=== PATIENT | female | born 1980 | race Caucasian/White ===

== ENCOUNTER 2017-02-25 13:35 | Emergency (ER) | payer OTHER ==
[2017-02-25] MEDS ORDERED: SODIUM CHLORIDE 0.9% 1,000 ML IV STA (15:01)
[2017-02-25] MEDS ORDERED: ENALAPRILAT 1.25 MG/ML 1 ML VIAL IVP STA (15:01)
--- NOTE | 2017-02-25 15:08 | ED ---
General Adult HPI - General Chief complaint: Headache Stated complaint: HBP Time Seen by Provider: 02/25/17 14:54 Source: patient, RN notes reviewed Mode of arrival: wheelchair Limitations: no limitations - History of Present Illness Initial comments: 36 yo female presents to the emergency room chief complaint of headache. Patient states she woke up this morning with a headaches took her blood pressure in the bottom number was 113. Patient states she has high blood pressure in but has since had no problems. Patient states that her headache was concerning with this so she thought that she should be seen. Patient denies any nausea or vomiting with this. Patient states she did notice the blurred vision. Patient denies any weakness. Patient was concerned due to the headache so she thought that she should be evaluated. Patient denies any recent fever, chills, shortness of breath, chest pain, back pain, abdominal pain , nausea vomiting, numbness or tingling, dysuria or hematuria, constipation or diarrhea, visual changes, or any other current symptoms. - Related Data Home Medications Medication Instructions Recorded Confirmed Levothyroxine Sodium [Synthroid] 88 mcg PO DAILY 02/25/17 02/25/17 Previous Rx's Medication Instructions Recorded amLODIPine BESYLATE [Norvasc] 2.5 mg PO DAILY #10 tab 02/25/17 Allergies Allergy/AdvReac Type Severity Reaction Status Date / Time codeine AdvReac Nausea & Verified 02/25/17 15:35 Vomiting Review of Systems ROS Statement: Those systems with pertinent positive or pertinent negative responses have been documented in the HPI. ROS Other: All systems not noted in ROS Statement are negative. Past Medical History Past Medical History: Asthma Additional Past Medical History / Comment(s): migraines. History of Any Multi-Drug Resistant Organisms: None Reported Past Surgical History: No Surgical Hx Reported Past Psychological History: No Psychological Hx Reported Smoking Status: Never smoker Past Alcohol Use History: None Reported Past Drug Use History: None Reported General Exam - General Exam Comments Initial Comments: General: The patient is awake and alert, in no distress, and does not appear acutely ill. Eye: Pupils are equal, round and reactive to light, extra-ocular movements are intact; there is normal conjunctiva bilaterally. No signs of icterus. Ears, nose, mouth and throat: There are moist mucous membranes and no oral lesions. Neck: The neck is supple, there is no tenderness. Cardiovascular: There is a regular rate and rhythm. No murmur, rub or gallop is appreciated. Respiratory: Lungs are clear to auscultation, respirations are non-labored, breath sounds are equal. No wheezes, stridor, rales, or rhonchi. Gastrointestinal: Soft, non-distended, non-tender abdomen without masses or organomegaly noted. There is no rebound or guarding present. No CVA tenderness. Bowel sounds are unremarkable. Back: There is no tenderness to palpation in the midline. There is no obvious deformity. No rashes noted. Musculoskeletal: Normal ROM, no tenderness, There is no pedal edema. There is no calf tenderness or swelling. Sensation intact. Pulses equal bilaterally 2+. Neurological: CN II-XII intact, There are no obvious motor or sensory deficits. Coordination appears grossly intact. Speech is normal. Skin: Skin is warm and dry and no rashes or lesions are noted. Psychiatric: Cooperative, appropriate mood & affect, normal judgment. Limitations: no limitations Course Vital Signs 02/25/17 02/25/17 02/25/17 13:51 14:57 15:59 Temperature 98.2 F Pulse Rate 90 78 Respiratory 20 18 18 Rate Blood Pressure 160/85 172/96 154/91 O2 Sat by Pulse 96 Oximetry 02/25/17 02/25/17 16:36 17:19 Temperature 97.9 F Pulse Rate 89 Respiratory 14 Rate Blood Pressure 124/82 119/69 O2 Sat by Pulse 100 Oximetry Medical Decision Making - Medical Decision Making 36-year-old female presents emergency 5 chief complaint of headache and hypertension. This time patient's headache and high blood pressure has improved. At this time CT is reviewed and negative. At this time we will start patient on Norvasc for hypertension.. Her doctor return for hours all questions. She stated that she understood and she is given plan. All her symptoms. She'll be discharged. - Lab Data Result diagrams: 02/25/17 15:19 02/25/17 15:19 Lab Results 02/25/17 02/25/17 02/25/17 Range/Units 15:19 15:19 15:19 WBC 7.3 (3.8-10.6) k/uL RBC 4.35 (3.80-5.40) m/uL Hgb 13.1 (11.4-16.0) gm/dL Hct 39.3 (34.0-46.0) % MCV 90.3 (80.0-100.0) fL MCH 30.1 (25.0-35.0) pg MCHC 33.4 (31.0-37.0) g/dL RDW 12.6 (11.5-15.5) % Plt Count 194 (150-450) k/uL Neutrophils % 60 % Lymphocytes % 30 % Monocytes % 6 % Eosinophils % 3 % Basophils % 1 % Neutrophils # 4.3 (1.3-7.7) k/uL Lymphocytes # 2.1 (1.0-4.8) k/uL Monocytes # 0.4 (0-1.0) k/uL Eosinophils # 0.2 (0-0.7) k/uL Basophils # 0.0 (0-0.2) k/uL Sodium 145 (137-145) mmol/L Potassium 3.7 (3.5-5.1) mmol/L Chloride 109 H (98-107) mmol/L Carbon Dioxide 23 (22-30) mmol/L Anion Gap 13 mmol/L BUN 9 (7-17) mg/dL Creatinine 0.70 (0.52-1.04) mg/dL Est GFR (MDRD) Af Amer >60 (>60 ml/min/1.73 sqM) Est GFR (MDRD) Non-Af >60 (>60 ml/min/1.73 sqM) Glucose 99 (74-99) mg/dL Calcium 9.6 (8.4-10.2) mg/dL Total Bilirubin 0.5 (0.2-1.3) mg/dL AST 23 (14-36) U/L ALT 32 (9-52) U/L Alkaline Phosphatase 67 (38-126) U/L Total Protein 7.7 (6.3-8.2) g/dL Albumin 4.7 (3.5-5.0) g/dL HCG, Qual Not Detected - Radiology Data Radiology results: report reviewed, image reviewed Disposition Clinical Impression: Headache, Hypertension Disposition: HOME SELF-CARE Condition: Stable Instructions: Acute Headache (ED) Additional Instructions: Please use medication as discussed. Please follow up with family doctor if symptoms have not improved over the next two days. Please return to the emergency room if your symptoms increase or worsen or for any other concerns. Prescriptions: amLODIPine BESYLATE [Norvasc] 2.5 mg PO DAILY #10 tab Referrals: Russ Bell MD [Primary Care Provider] - 1-2 days Time of Disposition: 18:18
[2017-02-25 15:34] LABS: Basophils % (A) 1 %; CH 30.1; CHCM 33.5; Eosinophils # (A) 0.2 k/uL (0-0.7); Eosinophils % (A) 3 %; HCT 39.3 % (34.0-46.0); HDW 2.34; HGB 13.1 gm/dL (11.4-16.0); Luc # (Auto) 0.11; Luc % (Auto) 2; Lymphocytes # (A) 2.1 k/uL (1.0-4.8); Lymphocytes % (A) 30 %; MCH 30.1 pg (25.0-35.0); MCHC 33.4 g/dL (31.0-37.0); MCV 90.3 fL (80.0-100.0); Mean Platelet Volume 6.8; Monocytes # (A) 0.4 k/uL (0-1.0); Monocytes % (A) 6 %; Neutrophils # (A) 4.3 k/uL (1.3-7.7); Neutrophils % (A) 60 %; RBC 4.35 m/uL (3.80-5.40); RDW 12.6 % (11.5-15.5); WBC 7.3 k/uL (3.8-10.6); WBC (Perox) 7.28
[2017-02-25] MEDS ORDERED: METOCLOPRAMIDE 5 MG/ML 2 ML VIAL IVP STA (15:40)
[2017-02-25] MEDS ORDERED: diphenhydrAMINE 50 MG/ML 1 ML VIAL IVP STA (15:40)
[2017-02-25 15:47] LABS: ALT 32 U/L (9-52); AST 23 U/L (14-36); Alkaline Phosphatase 67 U/L (38-126); Anion Gap 13 mmol/L; Blood Urea Nitrogen 9 mg/dL (7-17); Calcium 9.6 mg/dL (8.4-10.2); Carbon Dioxide 23 mmol/L (22-30); Chloride 109 mmol/L (98-107); Glucose 99 mg/dL (74-99); Non-African American GFR(MDRD) >60 (>60 ml/min/1.73 sqM); Potassium 3.7 mmol/L (3.5-5.1); Sodium 145 mmol/L (137-145); Total Bilirubin 0.5 mg/dL (0.2-1.3); Total Protein 7.7 g/dL (6.3-8.2)
--- NOTE | 2017-02-25 16:55 | CT ---
EXAMINATION TYPE: CT brain wo con DATE OF EXAM: 02/25/2017 COMPARISON: 04/06/2012 HISTORY: Migrane today. CT DLP: 1049 mGycm. Automated Exposure Control for Dose Reduction was Utilized. TECHNIQUE: CT scan of the head is performed without contrast. FINDINGS: There is no acute intracranial hemorrhage, mass effect, or midline shift identified. The ventricles and sulci are within normal limits in size. Changes of chronic mild sinusitis. IMPRESSION: No acute intracranial hemorrhage, mass effect, or midline shift is seen. If symptoms per sist recommend MRI.
[2017-02-25] MEDS ORDERED: RX INFO: IV CONTRAST WAS GIVEN 1 EACH MISC MISCELLANE PRN (17:07)
--- NOTE | 2017-02-25 18:10 | CT ---
EXAMINATION TYPE: CT angio head neck DATE OF EXAM: 02/25/2017 HISTORY: Hypertension and migrane. COMPARISON: NONE CT DLP: 250.1 mGycm. Automated Exposure Control for Dose Reduction was Utilized. TECHNIQUE: CTA scan of the neck is performed with IV Contrast, patient injected with 65 mL of Omnipa que 350, axial images are obtained, coronal and sagittal reformatted images are reviewed. Three-D rec onstructed images are created on an independent workstation and reviewed. FINDINGS: Visualized lung apices and superior mediastinum: Negative. Neck Soft tissues: No acute process. No focal findings. Carotid arterial Vascular Structures: Negative. Vertebral arterial vascular structures: Negative. Intracranial vascular structures: Negative. Intracranial examination: Both intra-axial and extra-axial compartments are negative. Other: No incidental findings. IMPRESSION: No significant abnormality is seen.
[2017-02-25] MEDS ORDERED: KETOROLAC 30 MG/ML 1 ML VIAL IVP STA (18:17)
[2017-02-25 18:45] VITALS: BP 123/74; PULSE 74; RESP 16; TEMP 98
== END 2017-02-25 18:40 | disposition home or self-care (01) ==
LOC: EC 13:35
DX: R51 Headache (principal); I10 Essential (primary) hypertension; H53.8 Other visual disturbances; Z79.899 Other long term (current) drug therapy; Z88.5 Allergy status to narcotic agent
CPT/HCPCS: 99284 ×2; 96374 ×2; 96375 ×3; 96361 ×4; 36415; 80053; 85025; 84703; 70496; 70450; 70498; J1200; J2765; Q9967; J1885

== ENCOUNTER → 2017-05-02 | Outpatient (CLI) | payer OTHER | END | disposition home or self-care (01) | LOC: LABWHC1 09:39 | PROVIDERS: ATTEND Nurse Practitioner Adult Health | DX: E03.9 Hypothyroidism, unspecified (principal) | CPT/HCPCS: 36415; 84439; 84443 ==

== ENCOUNTER 2017-07-31 12:02 | Emergency (ER) | payer OTHER ==
[2017-07-31 12:13] VITALS: RESP 18
[2017-07-31] MEDS ORDERED: ONDANSETRON 4 MG/2 ML VIAL IVP STA (12:37)
[2017-07-31] MEDS ORDERED: DIAZEPAM 5 MG/ML 2 ML INJ IVP STA (12:37)
[2017-07-31] MEDS ORDERED: diphenhydrAMINE 50 MG/ML 1 ML VIAL IVP STA (12:37)
--- NOTE | 2017-07-31 12:51 | ED ---
General Adult HPI - General Chief complaint: Dizziness Stated complaint: vertigo Time Seen by Provider: 07/31/17 12:09 Source: patient, RN notes reviewed, old records reviewed Mode of arrival: EMS Limitations: no limitations - History of Present Illness Initial comments: This is a 36-year-old female to the ER for evaluation. She presents today for evaluation regards to his anus. Room spinning. Patient has history of gestational hypertension. Mild gestational diabetes. Patient has had prior history of bleeding in her brain after . Patient denies any chance of at this time. Does have some nausea and has had room spinning since Tuesday. Patient denies chest pain or shortness of breath. No other neurological complaints - Related Data Home Medications Medication Instructions Recorded Confirmed Levothyroxine Sodium [Synthroid] 88 mcg PO DAILY 02/25/17 07/31/17 Allergies Allergy/AdvReac Type Severity Reaction Status Date / Time codeine AdvReac Nausea & Verified 07/31/17 12:25 Vomiting Review of Systems ROS Statement: Those systems with pertinent positive or pertinent negative responses have been documented in the HPI. ROS Other: All systems not noted in ROS Statement are negative. Past Medical History Past Medical History: Asthma Additional Past Medical History / Comment(s): migraines. History of Any Multi-Drug Resistant Organisms: None Reported Past Surgical History: No Surgical Hx Reported Past Psychological History: No Psychological Hx Reported Smoking Status: Never smoker Past Alcohol Use History: Rare Past Drug Use History: None Reported General Exam Limitations: no limitations General appearance: alert, in no apparent distress Head exam: Present: atraumatic, normocephalic, normal inspection Eye exam: Present: normal appearance, PERRL, EOMI, nystagmus (To the left). Absent: scleral icterus, conjunctival injection, periorbital swelling ENT exam: Present: normal exam, mucous membranes moist Neck exam: Present: normal inspection. Absent: tenderness, meningismus, lymphadenopathy Respiratory exam: Present: normal lung sounds bilaterally. Absent: respiratory distress, wheezes, rales, rhonchi, stridor Cardiovascular Exam: Present: regular rate, normal rhythm, normal heart sounds. Absent: systolic murmur, diastolic murmur, rubs, gallop, clicks GI/Abdominal exam: Present: soft, normal bowel sounds. Absent: distended, tenderness, guarding, rebound, rigid Extremities exam: Present: normal inspection, full ROM, normal capillary refill. Absent: tenderness, pedal edema, joint swelling, calf tenderness Back exam: Present: normal inspection Neurological exam: Present: alert, oriented X3, CN II-XII intact Psychiatric exam: Present: normal affect, normal mood Skin exam: Present: warm, dry, intact, normal color. Absent: rash Course Vital Signs 07/31/17 12:10 Temperature 98.4 F Pulse Rate 70 Respiratory 18 Rate Blood Pressure 135/94 O2 Sat by Pulse 100 Oximetry - Reevaluation(s) Reevaluation #1: 07/31/17 12:51 Symptoms improved with medication here in the ER Medical Decision Making - Medical Decision Making 36 female the ER with vertiginous symptoms. Patient has history of brain bleed , CT brain negative at this time. Patient will be discharged home with BPPV, antivert - Radiology Data Radiology results: report reviewed (CT brain negative), image reviewed Disposition Clinical Impression: Benign paroxysmal positional vertigo Disposition: HOME SELF-CARE Instructions: Vertigo (ED), Benign Paroxysmal Positional Vertigo (ED) Referrals: Russ Bell MD [Primary Care Provider] - 1-2 days
--- NOTE | 2017-07-31 13:24 | CT ---
EXAMINATION TYPE: CT brain wo con DATE OF EXAM: 07/31/2017 COMPARISON: Previous study dated 02/25/2017 HISTORY: Dizziness and headache without injury CT DLP: 945.5 mGycm Automated exposure control for dose reduction was used. FINDINGS: Central structures are midline. There is no evidence of hydrocephalus. No acute focal lesion, mass ef fect or midline shift is seen. I do not see evidence of intracranial blood. The orbits appear normal. Visualized portions of the paranasal sinuses and mastoids are clear. The bony calvarium is intact. IMPRESSION: NORMAL CT SCAN OF THE BRAIN.
[2017-07-31 14:39] VITALS: BP 122/72; PULSE 79; TEMP 99
== END 2017-07-31 14:08 | disposition home or self-care (01) ==
LOC: EC 12:02
DX: H81.10 Benign paroxysmal vertigo, unspecified ear (principal); H55.00 Unspecified nystagmus; Z88.5 Allergy status to narcotic agent; Z79.899 Other long term (current) drug therapy
CPT/HCPCS: 99285; 96374; 96375 ×2; 70450; J1200; J3360; J2405

== ENCOUNTER → 2017-11-11 | Outpatient (CLI) | payer OTHER ==
[2017-11-11 08:25] LABS: Basophils % (A) 0 %; Eosinophils # (A) 0.2 k/uL (0-0.7); Eosinophils % (A) 3 %; HCT 38.6 % (34.0-46.0); HGB 12.8 gm/dL (11.4-16.0); Lymphocytes # (A) 1.6 k/uL (1.0-4.8); Lymphocytes % (A) 22 %; MCH 29.1 pg (25.0-35.0); MCHC 33.2 g/dL (31.0-37.0); MCV 87.6 fL (80.0-100.0); Mean Platelet Volume 6.9; Monocytes # (A) 0.4 k/uL (0-1.0); Monocytes % (A) 6 %; Neutrophils # (A) 4.9 k/uL (1.3-7.7); Neutrophils % (A) 67 %; Platelet Count 180 k/uL (150-450); RDW 12.9 % (11.5-15.5); WBC 7.3 k/uL (3.8-10.6)
[2017-11-11 08:59] LABS: ALT 24 U/L (9-52); AST 23 U/L (14-36); Albumin 4.2 g/dL (3.5-5.0); Alkaline Phosphatase 51 U/L (38-126); Anion Gap 11 mmol/L; Blood Urea Nitrogen 13 mg/dL (7-17); Calcium 9.3 mg/dL (8.4-10.2); Carbon Dioxide 26 mmol/L (22-30); Chloride 105 mmol/L (98-107); Cholesterol 166 mg/dL (<200); Glucose 92 mg/dL (74-99); HDL Cholesterol 80 mg/dL (40-60); LDL Cholesterol,Calculated 77 mg/dL (0-99); Potassium 4.3 mmol/L (3.5-5.1); Sodium 142 mmol/L (137-145); Total Bilirubin 0.6 mg/dL (0.2-1.3); Total Protein 6.6 g/dL (6.3-8.2); Triglycerides 46 mg/dL (<150)
[2017-11-11 09:03] LABS: T4, Free (Free Thyroxine) 1.57 ng/dL (0.78-2.19)
== END | disposition home or self-care (01) ==
LOC: LABWHC1 07:59
PROVIDERS: ATTEND Nurse Practitioner Adult Health
DX: Z00.00 Encounter for general adult medical examination without abnormal findings (principal); E03.9 Hypothyroidism, unspecified; Z20.5 Contact with and (suspected) exposure to viral hepatitis
CPT/HCPCS: 36415; 80053; 80061; 84439; 84443; 85025; 86803

== ENCOUNTER 2019-01-31 15:18 | Observation (INO) | payer OTHER ==
[2019-01-31 16:09] LABS: Glucose,Whole Blood 126 mg/dL (75-99)
[2019-01-31] MEDS ORDERED: DIAZEPAM 5 MG/ML 2 ML INJ IVP STA (16:28)
[2019-01-31] MEDS ORDERED: SODIUM CHLORIDE 0.9% 1,000 ML IV STA (16:28)
--- NOTE | 2019-01-31 16:37 | ED ---
Dizziness HPI - General Chief Complaint: Dizziness Stated Complaint: Dizziness Time Seen by Provider: 01/31/19 15:45 Source: patient Mode of arrival: wheelchair Limitations: no limitations - History of Present Illness Initial Comments: The patient is a 38 year old female who presents to the emergency Department with reported vertiginous symptoms. The patient states that several hours ago she began having headache. She does report a history of migraines. States that she took her naproxen at home and her headache improved. She then had sudden onset of room spinning. states that she also found it difficult to ambulate upright. her symptoms are worse with positional changes. admits to photophobia. Denies any neck pain or stiffness. Denies any fevers or chills. No recent blunt head trauma. She denies any unilateral numbness or weakness. she denies any visual changes. the patient remains in the examination cart with her eyes closed. She denies the possibility of . Reports nausea without vomiting. Denies any hearing changes. No recent upper respiratory infections. No history of CVAs in the past. Denies any chest pain or shortness of breath. denies ripping or tearing sensation to her back. There are no other alleviatin g, precipitating or modifying factors - Related Data Home Medications Medication Instructions Recorded Confirmed Levothyroxine Sodium [Synthroid] 100 mcg PO DAILY 01/31/19 01/31/19 Naproxen 500 mg PO DAILY PRN 01/31/19 01/31/19 Previous Rx's Medication Instructions Recorded Magnesium Oxide [Mag-Oxide] 200 mg PO BID #60 tablet 02/01/19 Riboflavin 400 mg PO DAILY #30 tablet 02/01/19 Allergies Allergy/AdvReac Type Severity Reaction Status Date / Time codeine AdvReac Nausea & Verified 01/31/19 16:50 Vomiting Review of Systems ROS Statement: Those systems with pertinent positive or pertinent negative responses have been documented in the HPI. ROS Other: All systems not noted in ROS Statement are negative. Past Medical History Past Medical History: Asthma Additional Past Medical History / Comment(s): migraines. History of Any Multi-Drug Resistant Organisms: None Reported Past Surgical History: No Surgical Hx Reported Past Psychological History: No Psychological Hx Reported Smoking Status: Never smoker Past Alcohol Use History: Rare Past Drug Use History: None Reported General Exam Limitations: no limitations General appearance: alert, in no apparent distress Head exam: Present: atraumatic, normocephalic, normal inspection Eye exam: Present: PERRL, EOMI, nystagmus (the patient has a vertical nystagmus). Absent: scleral icterus, conjunctival injection, periorbital swe lling ENT exam: Present: normal exam, mucous membranes moist Neck exam: Present: normal inspection. Absent: tenderness, meningismus, lymphadenopathy Respiratory exam: Present: normal lung sounds bilaterally. Absent: respiratory distress, wheezes, rales, rhonchi, stridor Cardiovascular Exam: Present: regular rate, normal rhythm, normal heart sounds. Absent: systolic murmur, diastolic murmur, rubs, gallop, clicks GI/Abdominal exam: Present: soft, normal bowel sounds. Absent: distended, tenderness, guarding, rebound, rigid Extremities exam: Present: normal inspection, full ROM, normal capillary refill. Absent: tenderness, pedal edema, joint swelling, calf tenderness Back exam: Present: normal inspection Neurological exam: Present: alert, oriented X3, CN II-XII intact, abnormal gait (the patient is ataxic upon ambulation), other (finger to nose and heel to castro are symmetric bilaterally.) Psychiatric exam: Present: normal affect, normal mood Skin exam: Present: warm, dry, intact, normal color. Absent: rash Course Vital Signs 01/31/19 01/31/19 01/31/19 15:40 16:16 16:30 Temperature 98.9 F Pulse Rate 85 71 79 Pulse Rate [ Pulse Oximetery ] Respiratory 18 17 17 Rate Blood Pressure 131/94 139/96 139/96 O2 Sat by Pulse 98 100 Oximetry 01/31/19 01/31/19 01/31/19 17:00 17:30 18:00 Temperature Pulse Rate 80 70 70 Pulse Rate [ Pulse Oximetery ] Respiratory 18 18 18 Rate Blood Pressure 132/86 138/82 133/93 O2 Sat by Pulse Oximetry 01/31/19 01/31/19 01/31/19 18:28 18:30 19:00 Temperature Pulse Rate 64 65 67 Pulse Rate [ Pulse Oximetery ] Respiratory 18 17 18 Rate Blood Pressure 125/86 125/86 111/70 O2 Sat by Pulse 100 99 Oximetry 01/31/19 01/31/19 01/31/19 19:30 20:00 20:30 Temperature Pulse Rate 70 77 Pulse Rate [ Pulse Oximetery ] Respiratory 17 16 Rate Blood Pressure 106/78 123/84 O2 Sat by Pulse 99 98 Oximetry 01/31/19 01/31/19 02/01/19 21:00 21:14 00:00 Temperature 98.3 F Pulse Rate 64 68 Pulse Rate [ 66 Pulse Oximetery ] Respiratory 18 18 16 Rate Blood Pressure 141/105 121/82 O2 Sat by Pulse 100 Oximetry EKG Findings - EKG Comments: EKG Findings:: EKG demonstrates a normal sinus rhythm with a ventricular rate of 69. IL interval 166. QRS 80. QTC 430. There are no acute ST segment elevations or depressions concerning for ischemic changes Medical Decision Making - Medical Decision Making Upon arrival the patient is placed in room 3. She is hooked up to continuous pulse ox and cardiac monitoring. A 12-lead EKG is performed which demonstrates no acute findings. Peripheral IV established. The patient is given 5 mg of Va lium IV. I did recommend laboratory studies. The patient is ambulated to the bathroom and is ataxic. Because of this I did recommend a CT of the patient's brain as well as CT angiography og the patients head and neck. The patient did agree to this. Upon return of the results they are discussed the patient. She continues to have vertiginous symptoms. States that she feels improved however she cannot sit upright without spinning. Because of this I did provide the patient with an oral dose of meclizine. I did recommend admission to the hospital for evaluation by neurology. The patient did agree to this. She remained without focal neurologic deficit. The patient remained in stable con dition was transported to the floor - Lab Data Result diagrams: 02/01/19 07:31 02/01/19 07:31 Lab Results 01/31/19 01/31/19 01/31/19 Range/Units 16:04 18:25 18:25 WBC 8.1 (3.8-10.6) k/uL RBC 4.96 (3.80-5.40) m/uL Hgb 14.4 (11.4-16.0) gm/dL Hct 43.7 (34.0-46.0) % MCV 88.2 (80.0-100.0) fL MCH 29.0 (25.0-35.0) pg MCHC 32.9 (31.0-37.0) g/dL RDW 13.4 (11.5-15.5) % Plt Count 209 (150-450) k/uL Neutrophils % 65 % Lymphocytes % 24 % Monocytes % 6 % Eosinophils % 3 % Basophils % 1 % Neutrophils # 5.2 (1.3-7.7) k/uL Lymphocytes # 1.9 (1.0-4.8) k/uL Monocytes # 0.5 (0-1.0) k/uL Eosinophils # 0.2 (0-0.7) k/uL Basophils # 0.1 (0-0.2) k/uL PT (9.0-12.0) sec INR (<1.2) Sodium 141 (137-145) mmol/L Potassium 4.3 (3.5-5.1) mmol/L Chloride 108 H (98-107) mmol/L Carbon Dioxide 23 (22-30) mmol/L Anion Gap 10 mmol/L BUN 10 (7-17) mg/dL Creatinine 0.71 (0.52-1.04) mg/dL Est GFR (CKD-EPI)AfAm >90 (>60 ml/min/1.73 sqM) Est GFR (CKD-EPI)NonAf >90 (>60 ml/min/1.73 sqM) Glucose 106 H (74-99) mg/dL POC Glucose (mg/dL) 126 H (75-99) mg/dL POC Glu Privacy Manager ID Sree Gray Calcium 9.6 (8.4-10.2) mg/dL Total Bilirubin 0.5 (0.2-1.3) mg/dL AST 22 (14-36) U/L ALT 16 (9-52) U/L Alkaline Phosphatase 68 (38-126) U/L Troponin I (0.000-0.034) ng/mL Total Protein 7.4 (6.3-8.2) g/dL Albumin 4.5 (3.5-5.0) g/dL TSH 4.230 (0.465-4.680) mIU/L Urine Color Urine Appearance (Clear) Urine pH (5.0-8.0) Ur Specific [place] (1.001-1.035) Urine Protein (Negative) Urine Glucose (UA) (Negative) Urine Ketones (Negative) Urine Blood (Negative) Urine Nitrite (Negative) Urine Bilirubin (Negative) Urine Urobilinogen (<2.0) mg/dL Ur Leukocyte Esterase (Negative) Urine WBC (0-5) /hpf Urine WBC Clumps (None) /hpf Ur Squamous Epith Cells (0-4) /hpf Amorphous Sediment (None) /hpf Urine Mucus (None) /hpf Urine HCG, Qual (Not Detectd) 01/31/19 01/31/19 01/31/19 Range/Units 18:25 18:25 18:25 WBC (3.8-10.6) k/uL RBC (3.80-5.40) m/uL Hgb (11.4-16.0) gm/dL Hct (34.0-46.0) % MCV (80.0-100.0) fL MCH (25.0-35.0) pg MCHC (31.0-37.0) g/dL RDW (11.5-15.5) % Plt Count (150-450) k/uL Neutrophils % % Lymphocytes % % Monocytes % % Eosinophils % % Basophils % % Neutrophils # (1.3-7.7) k/uL Lymphocytes # (1.0-4.8) k/uL Monocytes # (0-1.0) k/uL Eosinophils # (0-0.7) k/uL Basophils # (0-0.2) k/uL PT 10.4 (9.0-12.0) sec INR 1.0 (<1.2) Sodium (137-145) mmol/L Potassium (3.5-5.1) mmol/L Chloride (98-107) mmol/L Carbon Dioxide (22-30) mmol/L Anion Gap mmol/L BUN (7-17) mg/dL Creatinine (0.52-1.04) mg/dL Est GFR (CKD-EPI)AfAm (>60 ml/min/1.73 sqM) Est GFR (CKD-EPI)NonAf (>60 ml/min/1.73 sqM) Glucose (74-99) mg/dL POC Glucose (mg/dL) (75-99) mg/dL POC Glu Privacy Manager ID Calcium (8.4-10.2) mg/dL Total Bilirubin (0.2-1.3) mg/dL AST (14-36) U/L ALT (9-52) U/L Alkaline Phosphatase (38-126) U/L Troponin I <0.012 (0.000-0.034) ng/mL Total Protein (6.3-8.2) g/dL Albumin (3.5-5.0) g/dL TSH (0.465-4.680) mIU/L Urine Color Urine Appearance (Clear) Urine pH (5.0-8.0) Ur Specific [place] (1.001-1.035) Urine Protein (Negative) Urine Glucose (UA) (Negative) Urine Ketones (Negative) Urine Blood (Negative) Urine Nitrite (Negative) Urine Bilirubin (Negative) Urine Urobilinogen (<2.0) mg/dL Ur Leukocyte Esterase (Negative) Urine WBC (0-5) /hpf Urine WBC Clumps (None) /hpf Ur Squamous Epith Cells (0-4) /hpf Amorphous Sediment (None) /hpf Urine Mucus (None) /hpf Urine HCG, Qual Not Detected (Not Detectd) 01/31/19 Range/Units 18:25 WBC (3.8-10.6) k/uL RBC (3.80-5.40) m/uL Hgb (11.4-16.0) gm/dL Hct (34.0-46.0) % MCV (80.0-100.0) fL MCH (25.0-35.0) pg MCHC (31.0-37.0) g/dL RDW (11.5-15.5) % Plt Count (150-450) k/uL Neutrophils % % Lymphocytes % % Monocytes % % Eosinophils % % Basophils % % Neutrophils # (1.3-7.7) k/uL Lymphocytes # (1.0-4.8) k/uL Monocytes # (0-1.0) k/uL Eosinophils # (0-0.7) k/uL Basophils # (0-0.2) k/uL PT (9.0-12.0) sec INR (<1.2) Sodium (137-145) mmol/L Potassium (3.5-5.1) mmol/L Chloride (98-107) mmol/L Carbon Dioxide (22-30) mmol/L Anion Gap mmol/L BUN (7-17) mg/dL Creatinine (0.52-1.04) mg/dL Est GFR (CKD-EPI)AfAm (>60 ml/min/1.73 sqM) Est GFR (CKD-EPI)NonAf (>60 ml/min/1.73 sqM) Glucose (74-99) mg/dL POC Glucose (mg/dL) (75-99) mg/dL POC Glu Privacy Manager ID Calcium (8.4-10.2) mg/dL Total Bilirubin (0.2-1.3) mg/dL AST (14-36) U/L ALT (9-52) U/L Alkaline Phosphatase (38-126) U/L Troponin I (0.000-0.034) ng/mL Total Protein (6.3-8.2) g/dL Albumin (3.5-5.0) g/dL TSH (0.465-4.680) mIU/L Urine Color Yellow Urine Appearance Turbid H (Clear) Urine pH 8.0 (5.0-8.0) Ur Specific [place] 1.011 (1.001-1.035) Urine Protein Trace H (Negative) Urine Glucose (UA) Negative (Negative) Urine Ketones Negative (Negative) Urine Blood Negative (Negative) Urine Nitrite Negative (Negative) Urine Bilirubin Negative (Negative) Urine Urobilinogen <2.0 (<2.0) mg/dL Ur Leukocyte Esterase Large H (Negative) Urine WBC 165 H (0-5) /hpf Urine WBC Clumps Occasional H (None) /hpf Ur Squamous Epith Cells 28 H (0-4) /hpf Amorphous Sediment Moderate H (None) /hpf Urine Mucus Rare H (None) /hpf Urine HCG, Qual (Not Detectd) Disposition Clinical Impression: Vertigo Disposition: ADMITTED IP TO THIS [facility] Condition: Stable Is patient prescribed a controlled substance at d/c from ED?: No Decision to Admit Reason: Admit from EC Decision Date: 01/31/19 Decision Time: 21:03
[2019-01-31 18:43] LABS: Basophils # (A) 0.1 k/uL (0-0.2); Basophils % (A) 1 %; Eosinophils # (A) 0.2 k/uL (0-0.7); Eosinophils % (A) 3 %; HCT 43.7 % (34.0-46.0); HGB 14.4 gm/dL (11.4-16.0); Lymphocytes # (A) 1.9 k/uL (1.0-4.8); Lymphocytes % (A) 24 %; MCHC 32.9 g/dL (31.0-37.0); MCV 88.2 fL (80.0-100.0); Mean Platelet Volume 6.8; Monocytes # (A) 0.5 k/uL (0-1.0); Monocytes % (A) 6 %; Neutrophils # (A) 5.2 k/uL (1.3-7.7); Neutrophils % (A) 65 %; Platelet Count 209 k/uL (150-450); RBC 4.96 m/uL (3.80-5.40); RDW 13.4 % (11.5-15.5); WBC 8.1 k/uL (3.8-10.6)
[2019-01-31 18:45] LABS: Prothrombin Time 10.4 sec (9.0-12.0)
[2019-01-31 18:49] LABS: ALT 16 U/L (9-52); AST 22 U/L (14-36); African American GFR (CKD) >90 (>60 ml/min/1.73 sqM); Albumin 4.5 g/dL (3.5-5.0); Alkaline Phosphatase 68 U/L (38-126); Anion Gap 10 mmol/L; Blood Urea Nitrogen 10 mg/dL (7-17); Calcium 9.6 mg/dL (8.4-10.2); Carbon Dioxide 23 mmol/L (22-30); Chloride 108 mmol/L (98-107); Glucose 106 mg/dL (74-99); Potassium 4.3 mmol/L (3.5-5.1); Sodium 141 mmol/L (137-145); Total Bilirubin 0.5 mg/dL (0.2-1.3); Total Protein 7.4 g/dL (6.3-8.2)
[2019-01-31 18:50] LABS: Amorphous Sediment,Urine Moderate /hpf; Appearance,Urine Turbid (Clear); Bilirubin,Urine Negative (Negative); Blood,Urine Negative (Negative); Color,Urine Yellow; Glucose,Urine (UA) Negative (Negative); Ketones,Urine Negative (Negative); Leukocyte Esterase,Urine Large (Negative); Mucus,Urine Rare /hpf; Nitrite,Urine Negative (Negative); Protein,Urine Trace (Negative); Specific Gravity,Urine 1.011 (1.001-1.035); Squamous Epithelial Cell,Urine 28 /hpf (0-4); Urobilinogen,Urine <2.0 mg/dL (<2.0)
--- NOTE | 2019-01-31 20:05 | CT ---
EXAMINATION TYPE: CT brain wo con DATE OF EXAM: 01/31/2019 COMPARISON: 07/31/2017 INDICATION: headache, dizziness DLP: 1074.9 mGycm, Automated exposure control for dose reduction was used. CONTRAST: None CT of the brain is performed utilizing 3 mm thick sections through the posterior fossa and 3 mm thick sections through the remaining calvarium. Study is performed within 24 hours of arrival to the hosp [facility]. No abnormal hyperdensity is present to suggest an acute intracranial hemorrhage. No mass lesion is evident. No acute infarcts are evident. Ventricles and sulci are appropriate for the patient age. Paranasal sinuses and mastoid air cells within the [id number] are clear. IMPRESSIONS: 1. No acute intracranial process.
--- NOTE | 2019-01-31 20:16 | XR ---
EXAMINATION TYPE: XR chest 2V DATE OF EXAM: 01/31/2019 COMPARISON: None INDICATION: Lightheaded, history of asthma TECHNIQUE: Frontal and lateral views of the chest are obtained. FINDINGS: The heart size is normal. The pulmonary vasculature is normal. The lungs are clear. IMPRESSION: 1. No acute pulmonary process.
--- NOTE | 2019-01-31 20:41 | CT ---
EXAMINATION TYPE: CT angio head neck DATE OF EXAM: 01/31/2019 HISTORY: headache, dizziness COMPARISON: 02/25/2017 CT DLP: 333.3 mGycm. Automated Exposure Control for Dose Reduction was Utilized. TECHNIQUE: CTA scan of the neck is performed with IV Contrast, patient injected with 50cc mL of Isov ue 370, axial images are obtained, coronal and sagittal reformatted images are reviewed. Three-D carolyn nstructed images are created on an independent workstation and reviewed. Source images are reviewed. FINDINGS: Carotid/Vascular Structures: There is a three-vessel arch. Vertebral arteries are codominant. Carotid bifurcations appear unremarkable without significant flow-limiting stenosis. Reconstructed images yeboah ggest some narrowing of the proximal right internal carotid artery. However, this appears to be recon struction artifact. Source images appear normal Cervical of [place]: Vertebral basilar system appears normal. Posterior cerebral vasculature is unrema rkable. Internal carotid arteries bifurcate normally into A1 and M1 segments. A2 segments are normal. The anterior communicating artery is patent. Left Posterior communicating artery is patent. Right po sterior communicating artery is patent. Other: Torus tubarius and fossa Rosenmuller appear normal. Submandibular glands appear normal. Submen vilma space is unremarkable. Thyroid is visualized appears normal. Lung apices within the field of view are unremarkable. Beam hardening artifact from dental amalgam is present. IMPRESSION: 1. No flow-limiting stenosis bilateral carotid bifurcations. 2. Normal chicken ranch of [place]
[2019-01-31] MEDS ORDERED: MECLIZINE 12.5 MG TAB PO STA (20:55)
[2019-01-31] MEDS ORDERED: NALOXONE 0.4 MG/ML 1 ML VIAL IV PRN (21:03)
[2019-01-31] MEDS ORDERED: SODIUM CHLORIDE 0.9% 1,000 ML IV SCH (21:15)
[2019-02-01] MEDS: MECLIZINE 25 MG TAB PO SCH ×2 (01:13→08:30)
[2019-02-01 08:19] LABS: Basophils % (A) 0 %; Eosinophils # (A) 0.2 k/uL (0-0.7); Eosinophils % (A) 3 %; HCT 34.1 % (34.0-46.0); Lymphocytes % (A) 35 %; MCH 29.3 pg (25.0-35.0); MCHC 33.2 g/dL (31.0-37.0); MCV 88.2 fL (80.0-100.0); Mean Platelet Volume 6.8; Monocytes # (A) 0.4 k/uL (0-1.0); Monocytes % (A) 6 %; Neutrophils % (A) 54 %; Platelet Count 175 k/uL (150-450); RBC 3.87 m/uL (3.80-5.40); RDW 13.6 % (11.5-15.5); WBC 5.6 k/uL (3.8-10.6)
[2019-02-01 08:22] LABS: HGB 11.3 gm/dL (11.4-16.0)
[2019-02-01 08:24] LABS: African American GFR (CKD) >90 (>60 ml/min/1.73 sqM); Anion Gap 5 mmol/L; Blood Urea Nitrogen 10 mg/dL (7-17); Calcium 8.2 mg/dL (8.4-10.2); Carbon Dioxide 24 mmol/L (22-30); Chloride 113 mmol/L (98-107); Glucose 87 mg/dL (74-99); Potassium 4.1 mmol/L (3.5-5.1); Sodium 142 mmol/L (137-145)
[2019-02-01] MEDS ORDERED: LEVOTHYROXINE 100 MCG TAB PO SCH (09:00)
--- NOTE | 2019-02-01 11:31 | P.CNNES ---
History of Present Illness Consult date: 02/01/19 Requesting physician: Deya Naidu Reason for Consult: Vertigo, ataxia Chief complaint: Headache and dizzy History of Present Illness: This is a 38 RH female h/o SDH during a pre-eclamptic 13 years ago. She never required zaida hole or other neurosurgical intervention. The SDH resolved spontaneously that according to patient was "healed" on subsequent MRI Brain; however, since her delivery 13 years ago, she has been having episodic migraine that is unilateral associated with photosonophobia, N/V. No aura or prodrome. Yesterday she started to develop a migraine when she suddenly felt dizzy with a room-spinning sensation. The sensory symptom made it difficult for her to walk. She did not have any antecedent head/neck trauma, chiropractic manipulation or heavy lifting. While in the ER, she did have CT Head and CTA Head/Neck that were unrevealing. She was given meclizine that has improved her vertigo. Her migraine is also getting better. Patient states she averages at least one migraine/week. She once tried topiramate that caused alopecia and nail trophic changes. She does not recall having tried other meds. Review of Systems 14-point ROS performed and as per HPI. Neurologically, patient denies decreased level or loss of consciousness, seizure, changes in vision, diplopia, amaurosis, changes in hearing, facial droop, ptosis, hearing loss, tinnitus, dysarthria, dysphagia, aphasia, other focal numbness/weakness not mentioned above, tremors or bowel/bladder incontinence. Past Medical History Past Medical History: Asthma Additional Past Medical History / Comment(s): migraines. History of Any Multi-Drug Resistant Organisms: None Reported Past Surgical History: No Surgical Hx Reported Past Psychological History: No Psychological Hx Reported Smoking Status: Never smoker Past Alcohol Use History: Rare Past Drug Use History: None Reported Medications and Allergies Home Medications Medication Instructions Recorded Confirmed Type Levothyroxine Sodium [Synthroid] 100 mcg PO DAILY 01/31/19 01/31/19 History Naproxen 500 mg PO DAILY PRN 01/31/19 01/31/19 History Allergies Allergy/AdvReac Type Severity Reaction Status Date / Time codeine AdvReac Nausea & Verified 01/31/19 16:50 Vomiting Physical Examination - Vital Signs Vital Signs: Vital Signs Temp Pulse Pulse Resp BP BP Pulse Ox 02/01/19 05:20 98.2 F 72 16 107/69 98 02/01/19 00:47 98.2 F 66 16 110/74 97 02/01/19 00:00 66 16 01/31/19 21:14 68 18 121/82 100 01/31/19 21:00 98.3 F 64 18 141/105 01/31/19 20:30 77 16 123/84 98 01/31/19 20:00 70 17 99 01/31/19 19:30 106/78 01/31/19 19:00 67 18 111/70 01/31/19 18:30 65 17 125/86 99 01/31/19 18:28 64 18 125/86 100 01/31/19 18:00 70 18 133/93 01/31/19 17:30 70 18 138/82 01/31/19 17:00 80 18 132/86 01/31/19 16:30 79 17 139/96 01/31/19 16:16 71 17 139/96 100 01/31/19 15:40 98.9 F 85 18 131/94 98 Intake and Output 01/31/19 02/01/19 02/01/19 22:59 06:59 14:59 Intake Total 870 Balance 870 Intake: Intake, IV Titration 450 Amount Sodium Chloride 0.9% 1, 450 000 ml @ 75 mls/hr IV . [id number] [facility] Rx#:[id number] Oral 420 Other: # Voids 1 Weight 62.596 kg Gen NAD Pleasant and cooperative HEENT NCAT Sclera without icterus O/P clear Neck Supple No carotid bruit Cor RRR no m/r/g Lungs CTAB Abd Soft NTND +BS Ext Warm to touch No edema Neuro MS A+Ox4 Normal fluency Able to follow all commands CN PERRL VFF no APD EOMI no nystagmus or MARITZA negative skew No facial asymmetry [place]'s symmetric Hearing intact to normal voice bilaterally Speech not dysarthric Equal elevation of palate Tongue midline Sym shrug and SCM bilaterally Motor Normal bulk/tone No pronator or tremors Strength 5/5 sym throughout Sens Intact to LT x4 No neglect or extinction Coord No dysmetria on FTN bilaterally DTRs 2+/4 sym throughout Toes downgoing bilaterally No clonus at achilles Gait Deferred Results - Laboratory Findings CBC and BMP: 02/01/19 07:31 02/01/19 07:31 Abnormal Lab Findings: Abnormal Labs 01/31/19 01/31/19 01/31/19 16:04 18:25 18:25 Hgb Chloride 108 H Glucose 106 H POC Glucose (mg/dL) 126 H Calcium Urine Appearance Turbid H Urine Protein Trace H Ur Leukocyte Esterase Large H Urine WBC 165 H Urine WBC Clumps Occasional H Ur Squamous Epith Cells 28 H Amorphous Sediment Moderate H Urine Mucus Rare H 02/01/19 02/01/19 07:31 07:31 Hgb 11.3 L D Chloride 113 H Glucose POC Glucose (mg/dL) Calcium 8.2 L Urine Appearance Urine Protein Ur Leukocyte Esterase Urine WBC Urine WBC Clumps Ur Squamous Epith Cells Amorphous Sediment Urine Mucus - Diagnostic Findings Additional findings: CT Head wo cont 01/31/19. No ICH. Nil acute. CTA Head/Neck 01/31/19. No LVO or stenosis. No cerebral aneurysm. I have reviewed neuroimages myself. Assessment and Plan Assessment: Vestibular migraine. Normal neuro exam. Nothing in history or on exam to suggest central or peripheral vertigo, ictal vertigo or other lateralizing signs to suspect posterior circulation CVA. Plan: -CT and CTA results reviewed with patient in detail -Since she has frequent migraine, suggest trying magnesium (oxide, glycinate or gluconate) 400mg/day or 200mg po bid and riboflavin 400mg/day for prophylaxis -Follow up with outpatient neurology -d/w patient and primary team in detail. All questions answered -No further inpatient neurological work-up suggested at this time. She is stable for discharge from an acute neuro standpoint. Please call with new ?. Thank you again for this consultation. Time with Patient: Greater than 30 (Time spent in direct patient care, greater than 50% of which was spent in [id number] counseling and coordination of care: 70 minutes)
[2019-02-01 12:22] VITALS: BP 108/71; PULSE 71; RESP 17; TEMP 98.3
--- NOTE | 2019-02-01 23:18 | P.HPIM ---
History of Present Illness H&P Date: 02/01/19 Chief Complaint: Headache dizziness History of presenting complaint: This is a very pleasant 38-year-old patient of Dr. Russ Bell. Patient's been getting migraines for quite some time. In the past she is followed up with neurologist Dr. Boyle. Often she takes naproxen for the same. In the past she is taking Topamax that did not help her. Had side effects from the same. Patient now gets about a headache once a week. On this occasion patient's headache became rather more severe it was a pounding headache and patient to go later in bed. [place] dizzy lites are bothering her worse with movements. Has some nausea. The symptoms were quite severe she decided to come to the ER. No fever or chills. No other focal symptoms. Review of systems: GEN.: Tired EYES: None HEENT: As above NECK: None RESPIRATORY: None CARDIOVASCULAR: None GASTROINTESTINAL: None GENITOURINARY: None MUSCULOSKELETAL: None LYMPHATICS: None HEMATOLOGICAL: None PSYCHIATRY: None NEUROLOGICAL: None Past medical history: Migraines Social history: . 5 children at home. Homemaker no smoking. No alcohol. Family history: Reviewed, noncontributory to presentation Physical examination: VITAL SIGNS: 98.9, 85, 18, 131/94, 98% room air GENERAL: Average built, propped up in bed, not in distress. EYES: Pupils equal. Conjunctiva normal. HEENT: External appearance of nose and ears normal, oral cavity grossly normal. NECK: JVD not raised; masses not palpable. HEART: First and second heart sounds are normal; no edema. LUNGS: Respiratory rate normal; clear to auscultation. ABDOMEN: Soft, nontender, liver spleen not palpable, no masses palpable. PSYCH: Alert and oriented x3; mood and affect normal. NEUROLOGICAL: Cranial nerves grossly intact; no facial asymmetry, power and sensation grossly intact. LYMPHATICS: No lymph nodes palpable in the axilla and neck INVESTIGATIONS, reviewed in the clinical context: EKG-normal sinus rhythm CT angiogram of brain-negative Computed tomography scan of the brain-unremarkable Assessment: -This is a patient is long-standing history of migraines. Used to follow with Dr. Boyle and did use Topamax in the past. Had side effects and stop using it. Gets a migraine episode" every once a week. Does occasionally get presents with complementation of symptoms suggestive of migraine attack. Does not seem to be localizing features. status migrainous Plan: Patient was given pain medications. Some Antivert for dizziness. Neurology was consulted. Past Medical History Past Medical History: Asthma Additional Past Medical History / Comment(s): migraines. History of Any Multi-Drug Resistant Organisms: None Reported Past Surgical History: No Surgical Hx Reported Past Psychological History: No Psychological Hx Reported Smoking Status: Never smoker Past Alcohol Use History: Rare Past Drug Use History: None Reported Medications and Allergies Home Medications Medication Instructions Recorded Confirmed Type Levothyroxine Sodium [Synthroid] 100 mcg PO DAILY 01/31/19 01/31/19 History Naproxen 500 mg PO DAILY PRN 01/31/19 01/31/19 History Magnesium Oxide [Mag-Oxide] 200 mg PO BID #60 tablet 02/01/19 Rx Riboflavin 400 mg PO DAILY #30 tablet 02/01/19 Rx Allergies Allergy/AdvReac Type Severity Reaction Status Date / Time codeine AdvReac Nausea & Verified 01/31/19 16:50 Vomiting Physical Exam Vitals: Vital Signs Temp Pulse Pulse Resp BP BP Pulse Ox 02/01/19 05:20 98.2 F 72 16 107/69 98 02/01/19 00:47 98.2 F 66 16 110/74 97 02/01/19 00:00 66 16 01/31/19 21:14 68 18 121/82 100 01/31/19 21:00 98.3 F 64 18 141/105 01/31/19 20:30 77 16 123/84 98 01/31/19 20:00 70 17 99 01/31/19 19:30 106/78 01/31/19 19:00 67 18 111/70 01/31/19 18:30 65 17 125/86 99 01/31/19 18:28 64 18 125/86 100 01/31/19 18:00 70 18 133/93 01/31/19 17:30 70 18 138/82 01/31/19 17:00 80 18 132/86 01/31/19 16:30 79 17 139/96 01/31/19 16:16 71 17 139/96 100 01/31/19 15:40 98.9 F 85 18 131/94 98 Intake and Output 01/31/19 02/01/19 02/01/19 22:59 06:59 14:59 Intake Total 870 Balance 870 Intake: Intake, IV Titration 450 Amount Sodium Chloride 0.9% 1, 450 000 ml @ 75 mls/hr IV . [id number] [facility] Rx#:[id number] Oral 420 Other: # Voids 1 Weight 62.596 kg Results CBC & Chem 7: 02/01/19 07:31 02/01/19 07:31 Labs: Abnormal Lab Results - Last 24 Hours (Table) 01/31/19 01/31/19 01/31/19 Range/Units 16:04 18:25 18:25 Hgb (11.4-16.0) gm/dL Chloride 108 H (98-107) mmol/L Glucose 106 H (74-99) mg/dL POC Glucose (mg/dL) 126 H (75-99) mg/dL Calcium (8.4-10.2) mg/dL Urine Appearance Turbid H (Clear) Urine Protein Trace H (Negative) Ur Leukocyte Esterase Large H (Negative) Urine WBC 165 H (0-5) /hpf Urine WBC Clumps Occasional H (None) /hpf Ur Squamous Epith Cells 28 H (0-4) /hpf Amorphous Sediment Moderate H (None) /hpf Urine Mucus Rare H (None) /hpf 02/01/19 02/01/19 Range/Units 07:31 07:31 Hgb 11.3 L D (11.4-16.0) gm/dL Chloride 113 H (98-107) mmol/L Glucose (74-99) mg/dL POC Glucose (mg/dL) (75-99) mg/dL Calcium 8.2 L (8.4-10.2) mg/dL Urine Appearance (Clear) Urine Protein (Negative) Ur Leukocyte Esterase (Negative) Urine WBC (0-5) /hpf Urine WBC Clumps (None) /hpf Ur Squamous Epith Cells (0-4) /hpf Amorphous Sediment (None) /hpf Urine Mucus (None) /hpf Microbiology - Last 24 Hours (Table) 01/31/19 18:25 Urine Culture - Preliminary Urine,Voided Thrombosis Risk Factor Assmnt - Choose All That Apply Any of the Below Risk Factors Present?: No Other Risk Factors: No Other congenital or acquired thrombophilia - If yes, enter type in comment: No Thrombosis Risk Factor Assessment Level: Very Low Risk
--- NOTE | 2019-02-01 23:21 | P.DS ---
Providers Date of admission: 01/31/19 21:03 Expected date of discharge: 02/01/19 Attending physician: Александр Goetz Consults: 01/31/19 21:16 Consult Physician Urgent Consulting Provider: Aminah Duncan Consult Reason/Comments: intractable vertigo, ataxia Do you want consulting provider notified?: Yes Primary care physician: Russ Bell [facility] Course: Hospital course: This is a very pleasant 38-year-old patient of Dr. Russ Bell. Patient's been getting migraines for quite some time. In the past she is followed up with neurologist Dr. Boyle. Often she takes naproxen for the same. In the past she is taking Topamax that did not help her. Had side effects from the same. Patient now gets about a headache once a week. On this occasion patient's headache became rather more severe it was a pounding headache and patient to go later in bed. [place] dizzy lites are bothering her worse with movements. Has some nausea. The symptoms were quite severe she decided to come to the ER. No fever or chills. No other focal symptoms. Patient's radiological workup was negative. Discussed with Dr. Duncan from neurology. Patient to be discharged home. Patient was to follow with neurologist Dr. Zamora Consultation: Dr. Duncan from neurology Physical examination: VITAL SIGNS: 70, 18, 1:30/82, GENERAL: Average built, propped up in bed, not in distress. EYES: Pupils equal. Conjunctiva normal. HEENT: External appearance of nose and ears normal, oral cavity grossly normal. NECK: JVD not raised; masses not palpable. HEART: First and second heart sounds are normal; no edema. LUNGS: Respiratory rate normal; clear to auscultation. ABDOMEN: Soft, nontender, liver spleen not palpable, no masses palpable. NEUROLOGICAL: Cranial nerves grossly intact; no facial asymmetry, power and sensation grossly intact. INVESTIGATIONS, reviewed in the clinical context: EKG-normal sinus rhythm CT angiogram of brain-negative Computed tomography scan of the brain-unremarkable Final diagnosis: Status vestibularr migrainous Disposition: Patient Condition at Discharge: Stable Plan - Discharge Summary Discharge Rx Participant: Yes New Discharge Prescriptions: New Magnesium Oxide [Mag-Oxide] 200 mg PO BID #60 tablet Riboflavin 400 mg PO DAILY #30 tablet Continue Levothyroxine Sodium [Synthroid] 100 mcg PO DAILY Naproxen 500 mg PO DAILY PRN PRN Reason: Migraine Headache Discharge Medication List Levothyroxine Sodium [Synthroid] 100 mcg PO DAILY 01/31/19 [History] Naproxen 500 mg PO DAILY PRN 01/31/19 [History] Magnesium Oxide [Mag-Oxide] 200 mg PO BID #60 tablet 02/01/19 [Rx] Riboflavin 400 mg PO DAILY #30 tablet 02/01/19 [Rx] Follow up Appointment(s)/Referral(s): Russ Bell MD [Primary Care Provider] - 02/08/19 11:30 am () Macario Zamora DO [STAFF PHYSICIAN] - 1 Week (Staff has contacted this office to try to set up a follow up appointment but they do not accept the [facility] insurance if you have a second insurance to use please call the office to set up a follow up appointment or please pick a neurologist of your choice) Patient Instructions/Handouts: Magnesium Oxide (By mouth), Vertigo (DC) Activity/Diet/Wound Care/Special Instructions: activity limited until follow up. Regular diet as tolerated. Discharge Disposition: HOME SELF-CARE
== END 2019-02-01 16:11 | disposition home or self-care (01) ==
LOC: EC 15:18 → 3NMEDONC 21:03
PROVIDERS: ADMIT Hospitalist; ATTEND Hospitalist
DX: G43.809 Other migraine, not intractable, without status migrainosus (principal); J45.909 Unspecified asthma, uncomplicated; Z79.890 Hormone replacement therapy; Z88.5 Allergy status to narcotic agent; Z79.1 Long term (current) use of non-steroidal anti-inflammatories (NSAID); Z79.899 Other long term (current) drug therapy
CPT/HCPCS: 96361; 96374; 99285; 36415; 93005; 80053; 80048; 84443; 84484 ×2; 85025 ×2; 85610; 81001; 81025; 87086; 71046; 70496; 70450; 70498; G0378 ×2; J3360; J0696; Q9967

== ENCOUNTER → 2019-03-07 | Outpatient (CLI) | payer OTHER ==
--- NOTE | 2019-03-07 12:44 | MR ---
EXAMINATION TYPE: MR brain wo con DATE OF EXAM: 03/07/2019 11:41 AM COMPARISON: NONE HISTORY: Migraine, dizziness Multiplanar and multispin-echo imaging of the brain was performed . The ventricles, basal cisterns and sulci overlying the cerebral convexities are within normal limits. There is no evidence for midline shift or mass effect. Acute intracranial hemorrhage or extra-axial collection is not evident. Approximately 15 punctate foci of increased signal within the deep and subcortical white matter are n oted measuring up to 3 mm. Left cerebral hemisphere demonstrates similar size and appearing lesions t otaling between 12 and 14 and number. Findings are nonspecific and could reflect demyelination as wel l as sequela of chronic migraine headaches, vasculitis and changes of Lyme's disease. Correlate clini [place]. No acute edema is identified. The paranasal sinuses and mastoid air cells are well-aerated. IMPRESSION: Nonspecific white matter changes noted.
== END | disposition home or self-care (01) ==
LOC: RADMRIMAIN 10:50
PROVIDERS: ATTEND Family Medicine
DX: R90.89 Other abnormal findings on diagnostic imaging of central nervous system (principal); G43.909 Migraine, unspecified, not intractable, without status migrainosus
CPT/HCPCS: 70551

== ENCOUNTER → 2019-05-02 | Outpatient (CLI) | payer OTHER ==
--- NOTE | 2019-05-03 01:49 | MR ---
EXAMINATION TYPE: MR elbow RT wo con DATE OF EXAM: 05/02/2019 COMPARISON: None HISTORY: Pain/contusion right elbow Standard multiplanar, multisequence MRI departmental protocol Multiplanar, multisequence images of the right elbow were acquired. FINDINGS: There is subcutaneous edema over the posterior proximal ulna. On the proton-density images there is a 2.5 cm area of increased signal in the proximal ulna and the olecranon process consistent with a large bone bruise. I see no definite fracture line. Proximal radius is intact. The distal carri pippa shows no focal bone destruction. There is no significant joint fluid. The collateral ligaments ar e intact. The brachialis tendon and biceps tendon appear intact. IMPRESSION: There is a large bone bruise involving the proximal ulna olecranon process. No fracture line seen. [place] bcutaneous edema and bruising over the olecranon process of the ulna. No evidence of ligament or tend on tear.
== END | disposition home or self-care (01) ==
LOC: RADMRIMAIN 17:44
PROVIDERS: ATTEND Physician Assistant
DX: S50.01XA Contusion of right elbow, initial encounter (principal)

== ENCOUNTER 2020-05-22 11:08 | Emergency (ER) | payer OTHER ==
[2020-05-22 11:21] VITALS: TEMP 98.6
[2020-05-22] MEDS ORDERED: MECLIZINE 12.5 MG TAB PO STA (11:34)
[2020-05-22] MEDS ORDERED: SODIUM CHLORIDE 0.9% 1,000 ML IV STA (11:34)
[2020-05-22] MEDS ORDERED: METOCLOPRAMIDE 5 MG/ML 2 ML VIAL IVP STA (11:35)
[2020-05-22] MEDS ORDERED: diphenhydrAMINE 50 MG/ML 1 ML VIAL IVP STA (11:35)
--- NOTE | 2020-05-22 11:44 | ED ---
General Adult HPI - General Chief complaint: Dizziness Stated complaint: Vertigo Time Seen by Provider: 05/22/20 11:23 Source: patient, RN notes reviewed Mode of arrival: wheelchair Limitations: no limitations - History of Present Illness Initial comments: 39 year old female presents to the emergency room for a chief complaint of dizziness. Patient has had dizziness for about the past 24 hours. States the room is spinning. Patient did have a few episodes of vomiting yesterday. No vomiting today however nausea has continued. Patient reports that moving her head makes this dizziness worse. Patient has a history of vertigo. Patient states this is exactly consistent with previous episodes of vertigo. She also has a history of migraines which they believe are related. Patient does have a headache at this time. Patient has had 2 previous CAT scans as well as a CTA of the head for the symptoms that were negative for acute process.Patient has no other complaints at this time including shortness of breath, chest pain, abdominal pain, nausea or vomiting, or visual changes. - Related Data Home Medications Medication Instructions Recorded Confirmed Levothyroxine Sodium [Synthroid] 100 mcg PO DAILY 01/31/19 05/22/20 Galcanezumab-Gnlm [Emgality] 120 mg SQ Q30D 05/22/20 05/22/20 Ondansetron Odt [Zofran Odt] 4 mg PO Q8H PRN 05/22/20 05/22/20 Rimegepant Sulfate [Nurtec Odt] 75 mg PO DAILY PRN 05/22/20 05/22/20 Previous Rx's Medication Instructions Recorded Meclizine [Antivert] 25 mg PO QID PRN #20 tab 05/22/20 Allergies Allergy/AdvReac Type Severity Reaction Status Date / Time codeine AdvReac Nausea & Verified 05/22/20 11:53 Vomiting Review of Systems ROS Statement: Those systems with pertinent positive or pertinent negative responses have been documented in the HPI. ROS Other: All systems not noted in ROS Statement are negative. Past Medical History Past Medical History: Asthma Additional Past Medical History / Comment(s): migraines. History of Any Multi-Drug Resistant Organisms: None Reported Past Surgical History: No Surgical Hx Reported Past Psychological History: No Psychological Hx Reported Smoking Status: Never smoker Past Alcohol Use History: Rare Past Drug Use History: None Reported General Exam Limitations: no limitations General appearance: anxious Head exam: Present: atraumatic, normocephalic, normal inspection Eye exam: Present: normal appearance, PERRL, EOMI. Absent: scleral icterus, c onjunctival injection, periorbital swelling ENT exam: Present: normal exam, mucous membranes moist Neck exam: Present: normal inspection, full ROM. Absent: tenderness, meningismus, lymphadenopathy Respiratory exam: Present: normal lung sounds bilaterally. Absent: respiratory distress, wheezes, rales, rhonchi, stridor Cardiovascular Exam: Present: regular rate, normal rhythm, normal heart sounds. Absent: systolic murmur, diastolic murmur, rubs, gallop, clicks GI/Abdominal exam: Present: soft, normal bowel sounds. Absent: distended, tenderness, guarding, rebound, rigid Neurological exam: Present: alert, oriented X3, normal gait Expanded Patient oriented to: Present: person, place, time Speech: Present: fluid speech Cerebellar function: Heel to [place]: Normal, Romberg: Normal Upper motor neuron: Pronator Drift: Normal Sensory exam: Upper Extremity Light Touch: Normal, Upper Extremity Pin Prick: Normal, Lower Extremity Light Touch: Normal, Lower Extremity Pin Prick: Normal Motor strength exam: RUE: 5, LUE: 5, RLE: 5, LLE: 5 Eye Response: (4) open spontaneously Motor Response: (6) obeys commands Verbal Response: (5) oriented Course Vital Signs 05/22/20 05/22/20 11:19 12:54 Temperature 98.6 F Pulse Rate 81 72 Respiratory 16 18 Rate Blood Pressure 127/87 102/73 O2 Sat by Pulse 100 100 Oximetry EKG Findings - EKG Comments: EKG Findings:: Normal sinus rhythm, ventricular rate 66, CO interval 160, QTC 429 Medical Decision Making - Medical Decision Making Vitals are stable. Patient initially unable to sit up because of dizziness. Patient reports the symptoms are exactly consistent with previous episodes of vertigo. She does have very slight headache and was diagnosed with vertiginous migraines when she was admitted for this problem last year. Patient states this feels the same at this time. No focal neurologic deficits. Vision was given medications which did help significantly with her symptoms. Repeat neuro exam was obtained and patient continues to have no focal neurologic deficits. She is able to walk to the bathroom, no ataxia. Patient feels much better. Patient will be discharged home. I did offer additional medications however she feels fine at this time and does not want any additional medications. - Lab Data Result diagrams: 05/22/20 12:00 05/22/20 12:00 Lab Results 05/22/20 05/22/20 Range/Units 12:00 12:00 WBC 6.5 (3.8-10.6) k/uL RBC 4.76 (3.80-5.40) m/uL Hgb 13.7 (11.4-16.0) gm/dL Hct 41.2 (34.0-46.0) % MCV 86.7 (80.0-100.0) fL MCH 28.7 (25.0-35.0) pg MCHC 33.1 (31.0-37.0) g/dL RDW 12.6 (11.5-15.5) % Plt Count 196 (150-450) k/uL MPV 7.5 Neutrophils % 63 % Lymphocytes % 27 % Monocytes % 5 % Eosinophils % 4 % Basophils % 0 % Neutrophils # 4.1 (1.3-7.7) k/uL Lymphocytes # 1.8 (1.0-4.8) k/uL Monocytes # 0.3 (0-1.0) k/uL Eosinophils # 0.3 (0-0.7) k/uL Basophils # 0.0 (0-0.2) k/uL Sodium 139 (137-145) mmol/L Potassium 4.0 (3.5-5.1) mmol/L Chloride 108 H (98-107) mmol/L Carbon Dioxide 25 (22-30) mmol/L Anion Gap 6 mmol/L BUN 14 (7-17) mg/dL Creatinine 0.84 (0.52-1.04) mg/dL Est GFR (CKD-EPI)AfAm >90 (>60 ml/min/1.73 sqM) Est GFR (CKD-EPI)NonAf 88 (>60 ml/min/1.73 sqM) Glucose 98 (74-99) mg/dL Calcium 9.1 (8.4-10.2) mg/dL Magnesium 2.1 (1.6-2.3) mg/dL Total Bilirubin 0.6 (0.2-1.3) mg/dL AST 22 (14-36) U/L ALT 14 (4-34) U/L Alkaline Phosphatase 63 (38-126) U/L Total Protein 7.1 (6.3-8.2) g/dL Albumin 4.3 (3.5-5.0) g/dL Disposition Clinical Impression: Vertigo Disposition: HOME SELF-CARE Condition: Good Instructions (If sedation given, give patient instructions): Dizziness (ED) Additional Instructions: Please take Antivert as directed. Follow-up with your doctor in one to 2 days. If you've any worsening symptoms return to the emergency room. Prescriptions: Meclizine [Antivert] 25 mg PO QID PRN #20 tab PRN Reason: dizzy Is patient prescribed a controlled substance at d/c from ED?: No Referrals: Russ Bell MD [Primary Care Provider] - 1-2 days Time of Disposition: 13:43
[2020-05-22 12:23] LABS: Basophils % (A) 0 %; Eosinophils # (A) 0.3 k/uL (0-0.7); Eosinophils % (A) 4 %; HCT 41.2 % (34.0-46.0); HGB 13.7 gm/dL (11.4-16.0); Lymphocytes # (A) 1.8 k/uL (1.0-4.8); Lymphocytes % (A) 27 %; MCH 28.7 pg (25.0-35.0); MCHC 33.1 g/dL (31.0-37.0); MCV 86.7 fL (80.0-100.0); Mean Platelet Volume 7.5; Monocytes # (A) 0.3 k/uL (0-1.0); Monocytes % (A) 5 %; Neutrophils # (A) 4.1 k/uL (1.3-7.7); Neutrophils % (A) 63 %; Platelet Count 196 k/uL (150-450); RBC 4.76 m/uL (3.80-5.40); RDW 12.6 % (11.5-15.5); WBC 6.5 k/uL (3.8-10.6)
[2020-05-22 12:35] LABS: ALT 14 U/L (4-34); AST 22 U/L (14-36); African American GFR (CKD) >90 (>60 ml/min/1.73 sqM); Albumin 4.3 g/dL (3.5-5.0); Alkaline Phosphatase 63 U/L (38-126); Anion Gap 6 mmol/L; Blood Urea Nitrogen 14 mg/dL (7-17); Calcium 9.1 mg/dL (8.4-10.2); Carbon Dioxide 25 mmol/L (22-30); Chloride 108 mmol/L (98-107); Glucose 98 mg/dL (74-99); Magnesium 2.1 mg/dL (1.6-2.3); Non-African American GFR(CKD) 88 (>60 ml/min/1.73 sqM); Sodium 139 mmol/L (137-145); Total Bilirubin 0.6 mg/dL (0.2-1.3); Total Protein 7.1 g/dL (6.3-8.2)
[2020-05-22 12:55] VITALS: RESP 18
[2020-05-22 13:52] VITALS: PULSE 65
[2020-05-22 13:59] VITALS: BP 100/60
== END 2020-05-22 13:47 | disposition home or self-care (01) ==
LOC: EC 11:08
DX: R42 Dizziness and giddiness (principal); R11.0 Nausea; R51.9 Headache, unspecified; Z79.890 Hormone replacement therapy; Z88.5 Allergy status to narcotic agent
CPT/HCPCS: 36415; 93005; 80053; 83735; 85025; 99284; 96374; 96375; 96361; J1200; J2765

== ENCOUNTER 2022-09-11 11:39 | Emergency (ER) | payer OTHER ==
[2022-09-11 11:43] VITALS: TEMP 98
[2022-09-11] MEDS ORDERED: SODIUM CHLORIDE 0.9% 1,000 ML IV STA (11:56)
[2022-09-11] MEDS ORDERED: ONDANSETRON 4 MG/2 ML VIAL IVP STA (11:57)
[2022-09-11] MEDS ORDERED: KETOROLAC 15 MG/ML 1 ML VIAL IVP STA (11:57)
[2022-09-11 12:30] LABS: Basophils % (A) 0 %; Eosinophils # (A) 0.1 k/uL (0-0.7); Eosinophils % (A) 1 %; HCT 36.3 % (34.0-46.0); HGB 12.8 gm/dL (11.4-16.0); Lymphocytes # (A) 1.7 k/uL (1.0-4.8); Lymphocytes % (A) 14 %; MCH 30.3 pg (25.0-35.0); MCHC 35.4 g/dL (31.0-37.0); MCV 85.7 fL (80.0-100.0); Mean Platelet Volume 7.5; Monocytes # (A) 0.5 k/uL (0-1.0); Monocytes % (A) 4 %; Neutrophils % (A) 80 %; Platelet Count 218 k/uL (150-450); RBC 4.23 m/uL (3.80-5.40); WBC 12.5 k/uL (3.8-10.6)
[2022-09-11 12:39] LABS: ALT 15 U/L (4-34); AST 19 U/L (14-36); African American GFR (CKD) >90 (>60 ml/min/1.73 sqM); Albumin 4.2 g/dL (3.5-5.0); Alkaline Phosphatase 78 U/L (38-126); Anion Gap 7 mmol/L; Blood Urea Nitrogen 9 mg/dL (7-17); Calcium 9.2 mg/dL (8.4-10.2); Carbon Dioxide 26 mmol/L (22-30); Chloride 105 mmol/L (98-107); Glucose 91 mg/dL (74-99); Lipase 86 U/L (23-300); Non-African American GFR(CKD) >90 (>60 ml/min/1.73 sqM); Potassium 4.2 mmol/L (3.5-5.1); Sodium 138 mmol/L (137-145); Total Bilirubin 0.7 mg/dL (0.2-1.3); Total Protein 7.1 g/dL (6.3-8.2)
[2022-09-11 13:02] LABS: Appearance,Urine Cloudy (Clear); Bacteria,Urine Occasional /hpf; Bilirubin,Urine Negative (Negative); Blood,Urine Large (Negative); Color,Urine Yellow; Glucose,Urine (UA) Negative (Negative); Ketones,Urine Negative (Negative); Leukocyte Esterase,Urine Large (Negative); Mucus,Urine Many /hpf; Nitrite,Urine Negative (Negative); Protein,Urine Negative (Negative); RBC,Urine 16 /hpf (0-5); Specific Gravity,Urine 1.007 (1.001-1.035); Squamous Epithelial Cell,Urine 2 /hpf (0-4); Urobilinogen,Urine <2.0 mg/dL (<2.0); WBC,Urine 77 /hpf (0-5)
--- NOTE | 2022-09-11 14:03 | ED ---
General Adult HPI - General Chief complaint: Recheck/Abnormal Lab/Rx Stated complaint: post op - wound Time Seen by Provider: 09/11/22 11:46 Source: patient Mode of arrival: ambulatory Limitations: no limitations - History of Present Illness Initial comments: Patient is a 42-year-old female who presents to the emergency department for foul-smelling vaginal discharge. Patient had a D&C, abrasion, and polyp removal from uterus by Dr. Vences at [facility] on 08/30/22 due to DUB. A few days after the procedure patient began smelling a foul odor from her vagina. Patient does have some thick white/pink discharge. She denies fever, chills. Patient states she just doesn't feel right. She does have some nausea without any vomiting. No abdominal pain. She reports back pain that is unchanged from her pain that she has had for the past couple months. Patient still has vaginal bleeding, approximately 2-3 pads per day. No burning with urination, urinary frequency/urgency. No concerns for sexually transmitted infections. Patient has a follow-up appointment with her surgeon on 09/14. States she has not talked to her surgeon about this issue. States she can to this hospital because it was closer to her home. - Related Data Home Medications Medication Instructions Recorded Confirmed Levothyroxine Sodium [Synthroid] 100 mcg PO DAILY 01/31/19 05/22/20 Galcanezumab-Gnlm [Emgality] 120 mg SQ Q30D 05/22/20 05/22/20 Ondansetron Odt [Zofran Odt] 4 mg PO Q8H PRN 05/22/20 05/22/20 Rimegepant Sulfate [Nurtec Odt] 75 mg PO DAILY PRN 05/22/20 05/22/20 Previous Rx's Medication Instructions Recorded Meclizine [Antivert] 25 mg PO QID PRN #20 tab 05/22/20 Doxycycline [Vibramycin] 100 mg PO BID 7 Days #14 capsule 09/11/22 Ibuprofen [Motrin] 600 mg PO Q8HR PRN #30 tab 09/11/22 Ondansetron Odt [Zofran Odt] 4 mg PO Q8HR PRN #10 tab 09/11/22 Allergies Allergy/AdvReac Type Severity Reaction Status Date / Time codeine AdvReac Nausea & Verified 09/11/22 11:43 Vomiting Review of Systems ROS Statement: Those systems with pertinent positive or pertinent negative responses have been documented in the HPI. ROS Other: All systems not noted in ROS Statement are negative. Past Medical History Past Medical History: Asthma Additional Past Medical History / Comment(s): migraines. History of Any Multi-Drug Resistant Organisms: None Reported Past Surgical History: Tubal Ligation Past Psychological History: No Psychological Hx Reported Smoking Status: Never smoker Past Alcohol Use History: Rare Past Drug Use History: None Reported General Exam Limitations: no limitations General appearance: alert, in no apparent distress Respiratory exam: Present: normal lung sounds bilaterally. Absent: respiratory distress, wheezes, rales, rhonchi, stridor Cardiovascular Exam: Present: regular rate, normal rhythm, normal heart sounds. Absent: systolic murmur, diastolic murmur, rubs, gallop, clicks GI/Abdominal exam: Present: soft, normal bowel sounds. Absent: distended, tenderness, guarding, rebound, rigid External exam: Present: normal external exam Speculum exam: Present: cervical discharge (white thick minimal blood). Absent: tissue, laceration By manual exam: Absent: cervical motion tenderness, adnexal tenderness Back exam: Present: normal inspection. Absent: CVA tenderness (R), CVA tenderne ss (L), paraspinal tenderness, vertebral tenderness Neurological exam: Present: alert, oriented X3, CN II-XII intact Psychiatric exam: Present: normal affect, normal mood Skin exam: Present: warm, dry, intact, normal color. Absent: rash Course Vital Signs 09/11/22 09/11/22 11:40 14:58 Temperature 98 F Pulse Rate 103 H 85 Respiratory 20 16 Rate Blood Pressure 148/95 129/90 O2 Sat by Pulse 99 100 Oximetry Medical Decision Making - Medical Decision Making Was pt. sent in by a medical professional or institution (, PA, SECOND [employer] HR ASSESSMENT, urgent care, hospital, or usp...) When possible be specific @ -No Did you speak to anyone other than the patient for history (EMS, parent, family, police, friend...)? What history was obtained from this source @ -No Did you review nursing and triage notes (agree or disagree)? Why? @ -I reviewed and agree with nursing and triage notes Were old charts reviewed (outside hosp., previous admission, EMS record, old EKG, old radiological studies, urgent care reports/EKG's, usp records)? Report findings @ -No old charts were reviewed Differential Diagnosis (chest pain, altered mental status, abdominal pain women, abdominal pain men, vaginal bleeding, weakness, fever, dyspnea, syncope, headache, dizziness, GI bleed, back pain, seizure, CVA, palpatations, mental health)? @ -Differential Abdominal Pain Women: Appendicitis, Cholecystitis, diverticulosis, ischemic bowel, pancreatitis, hepatitis, UTI, gastroenteritis, AAA, incarcerated hernia, bowel obstruction, constipation, inflammatory bowel, hepatitis, peptic ulcer disease, splenic infarction, perforated viscus, vulvitis, ovarian torsion, PID, kidney stone, placenta abruption, this is not meant to be an all-inclusive list EKG interpreted by me (3pts min.). @ -[As above] X-rays interpreted by me (1pt min.). @ -[None done] CT interpreted by me (1pt min.). @ -[None done] U/S interpreted by me (1pt. min.). @ -No. Ultrasound report shows a hyper echoic area in the endometrium raising the question of pelvic inflammatory disease. There is small free fluid in the cul-de-sac What testing was considered but not performed or refused? (CT, X-rays, U/S, labs)? Why? @ -[None] What meds were considered but not given or refused? Why? @ -[None] Did you discuss the management of the patient with other professionals (professionals i.e. , PA, SEC[employer]ESSMENT, lab, RT, psych nurse, rn social services, shoelace tipping machine operator, teacher, credit control officer, case resource manager)? Give summary @ -Dr. Champion see course. Was smoking cessation discussed for >3mins.? @ -[No] Was critical care preformed (if so, how long)? @ -[No] Were there social determinants of health that impacted care today? How? (Ho melessness, low income, unemployed, alcoholism, drug addiction, transportation, low edu. Level, literacy, decrease access to med. care, mcc, rehab)? @ -[No] Was there de-escalation of care discussed even if they declined (Discuss DNR or withdrawal of care, Hospice)? DNR status @ -[No] What co-morbidities impacted this encounter? (DM, HTN, Smoking, COPD, CAD, Cancer, CVA, ARF, Chemo, Hep., AIDS, mental health diagnosis, sleep apnea, morbid obesity)? @ -[None] Was patient admitted / discharged? Hospital course, mention meds given and route, prescriptions, significant lab abnormalities, going to OR and other pertinent info. @ -Patient presenting for evaluation of foul smelling vaginal discharge. Patient well-appearing and in no apparent distress. No abdominal tenderness. No fever or vomiting. Laboratory studies obtained. There is mild leukocytosis at 12.5. Other laboratory studies are relatively unremarkable. Pelvic examination does reveal malodorous white/pink thick cervical discharge. There is no cervical motion tenderness. Patient tolerated the pelvic exam well. Ultrasound does show a hyper echoic area in the endometrium raising the question of PID. There is small free fluid in the cul-de-sac. Case discussed with Dr. Champion. This is a 42-year-old female with recent pelvic procedure and malodorous vaginal discharge. No fever, no vomiting, no tenderness. Dr. Champion reviewed ultrasound he does think changes are surgical however with clinical presentation will treat for possible infection. Patient given Rocephin and doxycycline in the emergency department. She will be discharged with doxycycline and will follow up with her surgeon this plan. We discussed return parameters. Undiagnosed new problem with uncertain prognosis? @ -[No] Drug Therapy requiring intensive monitoring for toxicity (Heparin, Nitro, Insulin, Cardizem)? @ -[No] Were any procedures done? @ -[No] Diagnosis/symptom? @ -Foul smelling vaginal discharge Acute, or Chronic, or Acute on Chronic? @ -Acute Uncomplicated (without systemic symptoms) or Complicated (systemic symptoms)? @ -[Uncomplicated Side effects of treatment? @ -[No] Exacerbation, Progression, or Severe Exacerbation? @ -[No] Poses a threat to life or bodily function? How? (Chest pain, [place], [place], pneumonia, PE, COPD, DKA, ARF, appy, cholecystitis, CVA, Diverticulitis, Homicidal, Suicidal, threat to staff... and all critical care pts) @ -[No] Dr. Flores my attending - Lab Data Result diagrams: 09/11/22 12:22 09/11/22 12:22 Lab Results 09/11/22 09/11/2209/11/23 Range/Units 12:22 12:22 12:22 WBC 12.5 H (3.8-10.6) k/uL RBC 4.23 (3.80-5.40) m/uL Hgb 12.8 (11.4-16.0) gm/dL Hct 36.3 (34.0-46.0) % MCV 85.7 (80.0-100.0) fL MCH 30.3 (25.0-35.0) pg MCHC 35.4 (31.0-37.0) g/dL RDW 13.0 (11.5-15.5) % Plt Count 218 (150-450) k/uL MPV 7.5 Neutrophils % 80 % Lymphocytes % 14 % Monocytes % 4 % Eosinophils % 1 % Basophils % 0 % Neutrophils # 10.0 H (1.3-7.7) k/uL Lymphocytes # 1.7 (1.0-4.8) k/uL Monocytes # 0.5 (0-1.0) k/uL Eosinophils # 0.1 (0-0.7) k/uL Basophils # 0.0 (0-0.2) k/uL Sodium 138 (137-145) mmol/L Potassium 4.2 (3.5-5.1) mmol/L Chloride 105 (98-107) mmol/L Carbon Dioxide 26 (22-30) mmol/L Anion Gap 7 mmol/L BUN 9 (7-17) mg/dL Creatinine 0.66 (0.52-1.04) mg/dL Est GFR (CKD-EPI)AfAm >90 (>60 ml/min/1.73 sqM) Est GFR (CKD-EPI)NonAf >90 (>60 ml/min/1.73 sqM) Glucose 91 (74-99) mg/dL Plasma Lactic Acid [place]he 0.8 (0.7-2.0) mmol/L Calcium 9.2 (8.4-10.2) mg/dL Total Bilirubin 0.7 (0.2-1.3) mg/dL AST 19 (14-36) U/L ALT 15 (4-34) U/L Alkaline Phosphatase 78 (38-126) U/L Total Protein 7.1 (6.3-8.2) g/dL Albumin 4.2 (3.5-5.0) g/dL Lipase 86 (23-300) U/L Urine Color Urine Appearance (Clear) Urine pH (5.0-8.0) Ur Specific [place] (1.001-1.035) Urine Protein (Negative) Urine Glucose (UA) (Negative) Urine Ketones (Negative) Urine Blood (Negative) Urine Nitrite (Negative) Urine Bilirubin (Negative) Urine Urobilinogen (<2.0) mg/dL Ur Leukocyte Esterase (Negative) Urine RBC (0-5) /hpf Urine WBC (0-5) /hpf Urine WBC Clumps (None) /hpf Ur Squamous Epith Cells (0-4) /hpf Urine Bacteria (None) /hpf Urine Mucus (None) /hpf 09/11/22 Range/Units 12:34 WBC (3.8-10.6) k/uL RBC (3.80-5.40) m/uL Hgb (11.4-16.0) gm/dL Hct (34.0-46.0) % MCV (80.0-100.0) fL MCH (25.0-35.0) pg MCHC (31.0-37.0) g/dL RDW (11.5-15.5) % Plt Count (150-450) k/uL MPV Neutrophils % % Lymphocytes % % Monocytes % % Eosinophils % % Basophils % % Neutrophils # (1.3-7.7) k/uL Lymphocytes # (1.0-4.8) k/uL Monocytes # (0-1.0) k/uL Eosinophils # (0-0.7) k/uL Basophils # (0-0.2) k/uL Sodium (137-145) mmol/L Potassium (3.5-5.1) mmol/L Chloride (98-107) mmol/L Carbon Dioxide (22-30) mmol/L Anion Gap mmol/L BUN (7-17) mg/dL Creatinine (0.52-1.04) mg/dL Est GFR (CKD-EPI)AfAm (>60 ml/min/1.73 sqM) Est GFR (CKD-EPI)NonAf (>60 ml/min/1.73 sqM) Glucose (74-99) mg/dL Plasma Lactic Acid [place] (0.7-2.0) mmol/L Calcium (8.4-10.2) mg/dL Total Bilirubin (0.2-1.3) mg/dL AST (14-36) U/L ALT (4-34) U/L Alkaline Phosphatase (38-126) U/L Total Protein (6.3-8.2) g/dL Albumin (3.5-5.0) g/dL Lipase (23-300) U/L Urine Color Yellow Urine Appearance Cloudy H (Clear) Urine pH 6.0 (5.0-8.0) Ur Specific [place] 1.007 (1.001-1.035) Urine Protein Negative (Negative) Urine Glucose (UA) Negative (Negative) Urine Ketones Negative (Negative) Urine Blood Large H (Negative) Urine Nitrite Negative (Negative) Urine Bilirubin Negative (Negative) Urine Urobilinogen <2.0 (<2.0) mg/dL Ur Leukocyte Esterase Large H (Negative) Urine RBC 16 H (0-5) /hpf Urine WBC 77 H (0-5) /hpf Urine WBC Clumps Few H (None) /hpf Ur Squamous Epith Cells 2 (0-4) /hpf Urine Bacteria Occasional H (None) /hpf Urine Mucus Many H (None) /hpf Disposition Clinical Impression: Foul smelling vaginal discharge Disposition: HOME SELF-CARE Condition: Good Instructions (If sedation given, give patient instructions): Pelvic Inflammatory Disease (ED) Additional Instructions: Take medication as directed. Follow-up on the with your surgeon as planned. Return to the emergency department if you experience new, concerning, or worsening symptoms. Prescriptions: Ibuprofen [Motrin] 600 mg PO Q8HR PRN #30 tab PRN Reason: Pain Doxycycline [Vibramycin] 100 mg PO BID 7 Days #14 capsule Ondansetron Odt [Zofran Odt] 4 mg PO Q8HR PRN #10 tab PRN Reason: Nausea Is patient prescribed a controlled substance at d/c from ED?: No Referrals: Russ Bell MD [Primary Care Provider] - 1-2 days
--- NOTE | 2022-09-11 14:23 | US ---
EXAMINATION TYPE: US transvaginal DATE OF EXAM: 09/11/2022 COMPARISON: CT 2011 CLINICAL HISTORY: foul discharge s/p ablation, d C, polyp removal. Foul discharge, hx ablation and D and C. Left back pain. Hx 2 miscarriages. . TECHNIQUE: Transvaginal (TV). Date of LMP: Unknown per patient EXAM MEASUREMENTS: Uterus: 8.4 x 5.4 x 4.8 cm Endometrial Stripe: 1.03 cm Right Ovary: 5.4 x 3.8 x 2.9 cm Left Ovary: 4.1 x 2.0 x 1.8 cm 1. Uterus: Retroverted Subcentimeter anechoic areas in cervix. 2. Endometrium: Measures 1.03 cm. Hyperechoic areas with shadowing seen within endometrium, larges t measures: 1.1 x 0.7 x 0.3 cm. 3. Right Ovary: Appears enlarged. Anechoic area seen: 3.3 x 3.3 x 2.3 cm. Complex area seen: 1.6 x 1.7 x 1.7 cm. 4. Left Ovary: Largest anechoic area measures 1.4 x 1.6 x 1.8 cm. Spectral, color and waveform doppler imaging shows good arterial and venous flow within the ovaries . 6. Posterior cul-de-sac: Fluid seen within The endometrial stripe is prominent scattered small gas bubbles within it. IMPRESSION: 1. Mildly distended uterine cavity with gas bubbles. 2. Markedly enlarged ovaries containing multiple cystic masses. 3. Small amount of free fluid within the cul-de-sac. 4. Given the clinical history and the appearance of the endometrium and ovaries, the findings raise the question of PID.
[2022-09-11] MEDS ORDERED: DOXYCYCLINE 100 MG CAP PO STA (14:38)
[2022-09-11 16:00] VITALS: BP 132/93; PULSE 87; RESP 18
== END 2022-09-11 16:00 | disposition home or self-care (01) ==
LOC: EC 11:39
DX: N89.8 Other specified noninflammatory disorders of vagina (principal); J45.909 Unspecified asthma, uncomplicated; Z88.8 Allergy status to other drugs, medicaments and biological substances; Z98.51 Tubal ligation status
CPT/HCPCS: 36415; 80053; 83605; 83690; 85025; 81001; 87040; 87070; 87086; 93975; 76830; 99284; 96365; 96375; 96361; J2405; J0696; J1885

== ENCOUNTER 2022-09-19 08:23 | Observation (INO) | payer OTHER ==
--- NOTE | 2022-09-19 09:00 | ED ---
General Adult HPI - General Chief complaint: Abdominal Pain Stated complaint: Abd pain Time Seen by Provider: 09/19/22 08:40 Source: patient, EMS, RN notes reviewed Mode of arrival: EMS Limitations: no limitations - History of Present Illness Initial comments: Patient is a pleasant 42-year-old female presenting to the emergency department with concern for vaginal discharge and abdominal pain. Onset of symptoms was after her uterine ablation done on August 30. Symptoms have been continuous. Pain is somewhat severe. Pain has been continuous. Patient is . Patient was seen here on September 11 and started on doxycycline. Patient did follow-up with her ASSIGNER Tuesday and was advised that she could discontinue this. Patient did go to [facility] today with computed tomography scan done and started on IV antibiotics. Patient was not admitted there secondary to no ASSIGNER availability. - Related Data Home Medications Medication Instructions Recorded Confirmed Levothyroxine Sodium [Synthroid] 100 mcg PO DAILY 01/31/19 09/19/22 Galcanezumab-Gnlm [Emgality] 120 mg SQ Q30D 05/22/20 09/19/22 Ondansetron Odt [Zofran Odt] 4 mg PO Q8H PRN 05/22/20 09/19/22 Ibuprofen [Motrin] 600 mg PO Q8H PRN 09/19/22 09/19/22 Previous Rx's Medication Instructions Recorded Amoxic-Pot Clav 875-125Mg 1 tab PO BID 10 Days #20 tab 09/19/22 [Augmentin 875-125] metroNIDAZOLE [Flagyl] 500 mg PO BID #14 tab 09/19/22 Allergies Allergy/AdvReac Type Severity Reaction Status Date / Time codeine AdvReac Nausea & Verified 09/19/22 13:40 Vomiting Review of Systems ROS Statement: Those systems with pertinent positive or pertinent negative responses have been documented in the HPI. ROS Other: All systems not noted in ROS Statement are negative. Constitutional: Reports: chills Eyes: Denies: eye pain ENT: Denies: ear pain Respiratory: Denies: cough Cardiovascular: Denies: chest pain Endocrine: Denies: fatigue Gastrointestinal: Reports: as per HPI, abdominal pain Genitourinary: Reports: dysuria Musculoskeletal: Denies: back pain Skin: Denies: rash Neurological: Denies: weakness Past Medical History Past Medical History: Asthma Additional Past Medical History / Comment(s): migraines. History of Any Multi-Drug Resistant Organisms: None Reported Past Surgical History: Tubal Ligation, Uterine Ablation Past Psychological History: No Psychological Hx Reported Smoking Status: Never smoker Past Alcohol Use History: Rare Past Drug Use History: None Reported General Exam Limitations: no limitations General appearance: alert, in no apparent distress Head exam: Present: normocephalic Eye exam: Present: normal appearance Neck exam: Present: normal inspection Respiratory exam: Present: normal lung sounds bilaterally Cardiovascular Exam: Present: regular rate, normal rhythm GI/Abdominal exam: Present: soft, tenderness (Moderate diffuse tenderness to p alpation), normal bowel sounds. Absent: distended External exam: Present: normal external exam Speculum exam: Present: vaginal discharge (Mild whitish discharge) By manual exam: Present: other (mild diffuse tenderness) Extremities exam: Present: normal inspection Back exam: Present: normal inspection Neurological exam: Present: alert Psychiatric exam: Present: normal affect, normal mood Skin exam: Present: normal color Course Vital Signs 09/19/22 09/19/22 09/19/22 08:28 10:04 10:47 Temperature 98.2 F Pulse Rate 76 85 107 H Respiratory 16 16 18 Rate Blood Pressure 91/48 113/72 128/76 O2 Sat by Pulse 100 100 97 Oximetry Medical Decision Making - Medical Decision Making Was pt. sent in by a medical professional or institution (ESTUARDO Delgado, UROLOGY PHYSICIAN, urgent care, hospital, or senior living...) When possible be specific @ -Patient was sent from [facility] Did you speak to anyone other than the patient for history (EMS, parent, family, police, friend...)? What history was obtained from this source @ -No Did you review nursing and triage notes (agree or disagree)? Why? @ -I reviewed and agree with nursing and triage notes Were old charts reviewed (outside hosp., previous admission, EMS record, old EKG, old radiological studies, urgent care reports/EKG's, senior living records)? Report findings @ -Chart reviewed from [facility] Differential Diagnosis (chest pain, altered mental status, abdominal pain women, abdominal pain men, vaginal bleeding, weakness, fever, dyspnea, syncope, headache, dizziness, GI bleed, back pain, seizure, CVA, palpatations, mental health)? @ -Differential Abdominal Pain Women: Appendicitis, Cholecystitis, diverticulosis, ischemic bowel, pancreatitis, hepatitis, UTI, gastroenteritis, AAA, incarcerated hernia, bowel obstruction, constipation, inflammatory bowel, hepatitis, peptic ulcer disease, splenic infarction, perforated viscus, vulvitis, ovarian torsion, PID, kidney stone, placenta abruption, this is not meant to be an all-inclusive list EKG interpreted by me (3pts min.). @ -As above X-rays interpreted by me (1pt min.). @ -None done CT interpreted by me (1pt min.). @ -Report reviewed U/S interpreted by me (1pt. min.). @ -None done What testing was considered but not performed or refused? (CT, X-rays, U/S, labs)? Why? @ -None What meds were considered but not given or refused? Why? @ -None Did you discuss the management of the patient with other professionals (professionals i.e. , PA, UROLOGY PHYSICIAN, lab, RT, psych nurse, sr. social media & mobile manager, poultry farmer egg, teacher, aoc plans intelligence officer chief, telehealth case manager)? Give summary @ -Case was discussed in detail with Dr. Pfeiffer, including lab work, CT results and vital signs inpatient history and patient exam. She did feel patient could be discharged with Augmentin. She was again later contacted and Dr. Pfeiffer did speak directly with Dr. Culp and both were in agreement that patient could be discharged with Augmentin.Dr. Culp is familiar with this patient and did see her last week. She states the procedure was not complicated and her exam was not complicated at that time. She did recommend patient follow-up 8 a.m. Tuesday morning and call prior to that. Was smoking cessation discussed for >3mins.? @ -No Was critical care preformed (if so, how long)? @ -No Were there social determinants of health that impacted care today? How? (Homelessness, low income, unemployed, alcoholism, drug addiction, transportation, low edu. Level, literacy, decrease access to med. care, correction, rehab)? @ -No Was there de-escalation of care discussed even if they declined (Discuss DNR or withdrawal of care, Hospice)? DNR status @ -No What co-morbidities impacted this encounter? (DM, HTN, Smoking, COPD, CAD, Cancer, CVA, ARF, Chemo, Hep., AIDS, mental health diagnosis, sleep apnea, morbid obesity)? @ -None Was patient admitted / discharged? Hospital course, mention meds given and route, prescriptions, significant lab abnormalities, going to OR and other pertinent info. @ -Patient was reevaluated and updated in detail. She is aware of prescription sent for her and recommendation for starting them today. Undiagnosed new problem with uncertain prognosis? @ -No Drug Therapy requiring intensive monitoring for toxicity (Heparin, Nitro, Insulin, Cardizem)? @ -No Were any procedures done? @ -No Diagnosis/symptom? @ -Endometriosis Acute, or Chronic, or Acute on Chronic? @ -Acute Uncomplicated (without systemic symptoms) or Complicated (systemic symptoms)? @ -, Complicated with Trichomonas infection Side effects of treatment? @ -No Exacerbation, Progression, or Severe Exacerbation? @ -No Poses a threat to life or bodily function? How? (Chest pain, [place], [place], pneumonia, PE, COPD, DKA, ARF, appy, cholecystitis, CVA, Diverticulitis, Homicidal, Suicidal, threat to staff... and all critical care pts) @ -No Upon reevaluation patient still not feeling well despite several medications and IV fluids. Patient is not comfortable with discharge home. Case was again discussed with Dr Pfeiffer who will admit for observation and IV antibiotics. - Lab Data Lab Results 09/19/22 Range/Units 10:04 Trichomonas Ag (Rapid) Positive H (Negative) Disposition Clinical Impression: Endometritis, Trichomonas infection Disposition: ADMITTED IP TO THIS HOSP Condition: Stable Instructions (If sedation given, give patient instructions): Trichomoniasis (ED), Endometritis (ED) Additional Instructions: Prescription sent to pharmacy. Please do follow-up with her care physician in the next one to 2 days for recheck. Please do follow-up with Dr. Culp first thing Tuesday morning, 8 AM. Please call prior to this. Return for fevers, increased pain, not tolerating oral intake, worsening symptoms or other concerns. Prescriptions: Amoxic-Pot Clav 875-125Mg [Augmentin 875-125] 1 tab PO BID 10 Days #20 tab metroNIDAZOLE [Flagyl] 500 mg PO BID #14 tab Is patient prescribed a controlled substance at d/c from ED?: No Referrals: Russ Bell MD [Primary Care Provider] - 1-2 days Shakira Culp MD [REFERRING] - 1-2 days Time of Disposition: 13:54
[2022-09-19] MEDS ORDERED: SODIUM CHLORIDE 0.9% 1,000 ML IV STA ×2 (09:40→10:35)
[2022-09-19] MEDS ORDERED: MORPHINE SULFATE 4 MG/ML SYRINGE IVP STA ×2 (10:35→12:02)
[2022-09-19] MEDS ORDERED: ACETAMINOPHEN IV (For NPO) 1,000 MG in EMPTY BAG 1 BAG IVPB STA (11:19)
[2022-09-19] MEDS ORDERED: AMOXIC-POT CLAV 875-125MG 1 EACH TAB PO STA (11:29)
[2022-09-19] MEDS ORDERED: metroNIDAZOLE 500 MG TAB PO STA (11:29)
[2022-09-19] MEDS ORDERED: ONDANSETRON 4 MG/2 ML VIAL IVP STA (12:25)
[2022-09-19] MEDS ORDERED: IBUPROFEN 400 MG TAB PO PRN (13:57)
[2022-09-19] MEDS ORDERED: ONDANSETRON 4 MG/2 ML VIAL IVP PRN (13:57)
[2022-09-19] MEDS ORDERED: NALOXONE 0.4 MG/ML 1 ML VIAL IV PRN (13:57)
[2022-09-19] MEDS ORDERED: MORPHINE SULFATE 4 MG/ML SYRINGE IV PRN (13:57)
[2022-09-19] MEDS ORDERED: ACETAMINOPHEN IV (For NPO) 1,000 MG in EMPTY BAG 1 BAG IVPB PRN (13:59)
--- NOTE | 2022-09-19 15:32 | US ---
EXAMINATION TYPE: US transvaginal DATE OF EXAM: 09/19/2022 COMPARISON: US dated 09/11/2022 CLINICAL INDICATION: Female, 42 years old with history of Postprocedural endometritis; TECHNIQUE: Transvaginal (TV). Date of LMP: unknown EXAM MEASUREMENTS: Uterus: 6.6 x 3.9 x 5.3 cm Endometrial Stripe: 1.1 cm Right Ovary: 5.2 x 3.2 x 4.6 cm Left Ovary: 4.0 x 1.5 x 3.7 cm 1. Uterus: Retroverted some air pockets still seen around endometrium 2. Endometrium: measures 1.1 cm 3. Right Ovary: several cysts, largest measures 2.5 x 2.1 x 2.3 cm . These appear anechoic. 4. Left Ovary: A few cysts demonstrated with suggested internal debris likely representing hemorrhag ic cyst. Spectral, color and waveform doppler imaging shows good arterial and venous flow within the ovaries ; there is no evidence for ovarian torsion. 5. Bilateral Adnexa: wnl 6. Posterior cul-de-sac: small amount of free fluid Little change noted from prior study. Continued endometrial stripe prominence with scattered small fo ci of gas. IMPRESSION: 1. Overall no significant change from prior examination with prominent endometrium and scattered foc i of gas. This raises concern for endometritis. 2. Small amount of free fluid within the cul-de-sac are demonstrated. 3.
[2022-09-19] MEDS: SODIUM CHLORIDE 0.9% 1,000 ML IV SCH (15:33)
[2022-09-19] MEDS: AMPICILLIN-SULBACTAM 3 GM in SODIUM CHLORIDE 0.9% 100 ML IVPB SCH ×2 (16:11→22:03)
[2022-09-19 16:49] VITALS: RESP 16
[2022-09-19] MEDS: metroNIDAZOLE-NS PMX 500 MG in SALINE 1 100ML.BAG IVPB SCH (19:49)
[2022-09-20] MEDS: SODIUM CHLORIDE 0.9% 1,000 ML IV SCH (03:43)
[2022-09-20] MEDS: AMPICILLIN-SULBACTAM 3 GM in SODIUM CHLORIDE 0.9% 100 ML IVPB SCH ×2 (03:44→08:07)
[2022-09-20] MEDS: metroNIDAZOLE-NS PMX 500 MG in SALINE 1 100ML.BAG IVPB SCH ×2 (04:20→12:29)
--- NOTE | 2022-09-20 07:31 | P.HPOB ---
History of Present Illness H&P Date: 09/20/22 Chief Complaint: Abdominal pain, foul smelling vaginal discharge, 2 weeks status post outpat This is a 42-year-old female 5 para 30-3 status post hysteroscopy, endometrial polypectomy, and NovaSure endometrial ablation at [facility] on 08/30/2022. Patient has been in and out of the emergency room several times with abdominal pain. She was previously placed on doxycycline but this was discontinued by her primary physician 5 days ago. She presented to our emergency room again with increased abdominal pain, foul smelling vaginal discharge, and at White blood cell count of 21,000. She was admitted for failed outpatient therapy and IV antibiotics. Past medical history is significant for the passage of kidney stones.= As well as a history of asthma in the past. Past surgical history D&C 2005 for miscarriage. Social history patient is , she is not a smoker, she denies alcohol or drug use. ALLERGIES include pain medications only. Family history is essentially unremarkable. On exam patient is 5 foot 5 inches, 145 pounds, vital signs are stable, blood pressure 91/48, pulse 76, respirations 16, temperature 98.2. The general physical exam is within normal limits. Chest is clear in all burch. Extremities reveal no edema. On admission patient had moderate to severe pain in the abdomen, in the midline and both lower quadrants, no rebound or guarding. Cultures have been done vaginally which are returning positive for Trichomonas. Ultrasound reveals uterus to be 8.4 x 5.4 x 4.8 cm, with a small amount of gas on the inside consistent with recent outpatient procedure. No free fluid in the abdomen, adnexa negative with small clear fluid-filled cysts on the right ovary consistent with ovulation. Impression: 2 weeks status post endometrial ablation with post-ablation endometritis, failed outpatient therapy. Plan: Patient has been placed on Unasyn every 6 hours along with Flagyl intravenously. Plan was for 24 hours of IV antibiotics and then likely discharge home. I did discuss this with her primary aeronautical engineering officer who works at a [facility] who has agreed to see the patient in the office tomorrow. Review of Systems Constitutional: Reports as per HPI Past Medical History Past Medical History: Asthma Additional Past Medical History / Comment(s): migraines. History of Any Multi-Drug Resistant Organisms: None Reported Past Surgical History: Tubal Ligation, Uterine Ablation Past Anesthesia/Blood Transfusion Reactions: No Reported Reaction Past Psychological History: No Psychological Hx Reported Smoking Status: Never smoker Past Alcohol Use History: Rare Past Drug Use History: None Reported - Past Family History Mother Family Medical History: Thyroid Disorder Additional Family Medical History / Comment(s): kidney stones. Medications and Allergies Home Medications Medication Instructions Recorded Confirmed Type Levothyroxine Sodium [Synthroid] 100 mcg PO DAILY 01/31/19 09/19/22 History Galcanezumab-Gnlm [Emgality] 120 mg SQ Q30D 05/22/20 09/19/22 History Ondansetron Odt [Zofran Odt] 4 mg PO Q8H PRN 05/22/20 09/19/22 History Amoxic-Pot Clav 875-125Mg 1 tab PO BID 10 Days #20 tab 09/19/22 Rx [Augmentin 875-125] Ibuprofen [Motrin] 600 mg PO Q8H PRN 09/19/22 09/19/22 History metroNIDAZOLE [Flagyl] 500 mg PO BID #14 tab 09/19/22 Rx Allergies Allergy/AdvReac Type Severity Reaction Status Date / Time codeine AdvReac Nausea & Verified 09/19/22 13:40 Vomiting Exam Vital Signs Temp Pulse Pulse Resp BP BP Pulse Ox 09/20/22 03:48 97.2 F L 78 16 108/56 98 09/19/22 20:00 97.5 F L 77 16 110/68 97 09/19/22 16:00 98.1 F 76 16 104/59 97 09/19/22 14:15 62 18 116/71 97 09/19/22 10:47 107 H 18 128/76 97 09/19/22 10:04 85 16 113/72 100 09/19/22 08:28 98.2 F 76 16 91/48 100 Intake and Output 09/19/22 09/20/22 09/20/22 22:59 06:59 14:59 Other: # Voids 1 Weight 65.771 kg Results Abnormal Lab Results - Last 24 Hours (Table) 09/19/22 Range/Units 10:04 Trichomonas Ag (Rapid) Positive H (Negative) Microbiology - Last 24 Hours (Table) 09/19/22 10:04 Genital Culture - Preliminary Endocervix Assessment and Plan Assessment: 2 weeks postoperative from endometrial ablation, now with post-ablation endometritis. Plan: IV antibiotics. Repeat CBC in the morning. Likely discharge home pending clinical progress Tuesday. Time with Patient: Greater than 30
--- NOTE | 2022-09-20 07:33 | P.DS ---
Providers Date of admission: 09/19/22 13:57 Expected date of discharge: 09/20/22 Attending physician: Radha Pfeiffer Primary care physician: Russ Jennyfer [facility] Course: This is a 42-year-old female 5 para 30-3 who presented to our hospital with increasing abdominal pain and foul-smelling vaginal discharge, 2 weeks postoperative from another physician at [facility]. WBCs were 21,000, vaginal cultures revealed Trichomonas, patient was started on Unasyn every 6 hours along with IV Flagyl. She was admitted overnight. This morning her abdominal pain is greatly improved. There is no rebound or guarding. Nausea is resolved, she is eating regular breakfast. Vital signs have remained stable and she has remained afebrile. Morning CBC is pending. Plan is for discharge home later today. I have given her prescription for Flagyl 500 mg to be taken twice daily for 7 days along with Augmentin 850 mg to be taken twice daily for 7 days. She will follow-up with her primary game attendant tomorrow, she is to call for an appointment. Assessment: Greatly improved status post 48 hours of IV antibiotics for post endometrial ablation endometritis. Patient Condition at Discharge: Good Plan - Discharge Summary Discharge Rx Participant: No New Discharge Prescriptions: New Amoxic-Pot Clav 875-125Mg [Augmentin 875-125] 1 tab PO BID 10 Days #20 tab metroNIDAZOLE [Flagyl] 500 mg PO BID #14 tab No Action Levothyroxine Sodium [Synthroid] 100 mcg PO DAILY Ondansetron Odt [Zofran Odt] 4 mg PO Q8H PRN PRN Reason: Nausea Galcanezumab-Gnlm [Emgality] 120 mg SQ Q30D Ibuprofen [Motrin] 600 mg PO Q8H PRN PRN Reason: Pain Discharge Medication List Levothyroxine Sodium [Synthroid] 100 mcg PO DAILY 01/31/19 [History] Galcanezumab-Gnlm [Emgality] 120 mg SQ Q30D 05/22/20 [History] Ondansetron Odt [Zofran Odt] 4 mg PO Q8H PRN 05/22/20 [History] Amoxic-Pot Clav 875-125Mg [Augmentin 875-125] 1 tab PO BID 10 Days #20 tab 09/19/22 [Rx] Ibuprofen [Motrin] 600 mg PO Q8H PRN 09/19/22 [History] metroNIDAZOLE [Flagyl] 500 mg PO BID #14 tab 09/19/22 [Rx] Follow up Appointment(s)/Referral(s): Russ Bell MD [Primary Care Provider] - 1-2 days Shakira Culp MD [REFERRING] - 1-2 days Patient Instructions/Handouts: Trichomoniasis (ED), Endometritis (ED) Activity/Diet/Wound Care/Special Instructions: Prescription sent to pharmacy. Please do follow-up with her care physician in the next one to 2 days for recheck. Please do follow-up with Dr. Culp first thing Tuesday, 8 AM. Please call prior to this. Return for fevers, increased pain, not tolerating oral intake, worsening symptoms or other concerns. Discharge Disposition: HOME SELF-CARE
[2022-09-20 07:57] LABS: Basophils % (A) 0 %; Eosinophils # (A) 0.2 k/uL (0-0.7); Eosinophils % (A) 2 %; HCT 33.8 % (34.0-46.0); HGB 11.3 gm/dL (11.4-16.0); Lymphocytes # (A) 1.1 k/uL (1.0-4.8); Lymphocytes % (A) 14 %; MCH 29.9 pg (25.0-35.0); MCHC 33.5 g/dL (31.0-37.0); MCV 89.3 fL (80.0-100.0); Mean Platelet Volume 7.7; Monocytes # (A) 0.3 k/uL (0-1.0); Monocytes % (A) 4 %; Neutrophils # (A) 6.1 k/uL (1.3-7.7); Neutrophils % (A) 79 %; Platelet Count 213 k/uL (150-450); RBC 3.78 m/uL (3.80-5.40); WBC 7.7 k/uL (3.8-10.6)
[2022-09-20 08:16] VITALS: BP 117/79; PULSE 90; TEMP 98.4
[2022-09-20] MEDS ORDERED: PANTOPRAZOLE 40 MG/10 ML VIAL IV SCH (09:00)
[2022-09-21 15:19] LABS: C. trachomatis,PCR Negative (Neg,Equiv); Chlamydia trachomatis Source Vagina; N. gonorrhoeae,PCR Negative (Neg,Equiv); Neisseria Source Vagina
== END 2022-09-20 13:45 | disposition home or self-care (01) ==
LOC: EC 08:23 → 4FBP 13:57
PROVIDERS: ADMIT Obstetrics & Gynecology; ATTEND Obstetrics & Gynecology
DX: A59.8 Trichomoniasis of other sites (principal); Z79.890 Hormone replacement therapy; Z79.899 Other long term (current) drug therapy; Z88.5 Allergy status to narcotic agent; J45.909 Unspecified asthma, uncomplicated; G43.909 Migraine, unspecified, not intractable, without status migrainosus; Z98.51 Tubal ligation status; Z98.890 Other specified postprocedural states; Z87.442 Personal history of urinary calculi
CPT/HCPCS: 96366 ×2; 96367; 96375 ×2; 96365; 99285; 85025; 87808; 87491; 87591; 87070; 76830; G0378 ×2; J2270; J2405; J0295 ×2; J0131; C9113

== ENCOUNTER → 2024-04-10 | Outpatient (CLI) | payer BC ==
--- NOTE | 2024-04-15 19:07 | MM ---
Reason for Exam: Screening (asymptomatic). Patient History: Menarche at age 12. First Full-Term at age 25. Risk Values: Debbie 5 year model risk: 0.8%. NCI Lifetime model risk: 10.8%. Tissue Density: The breasts are heterogeneously dense, which may obscure small masses. Findings: Analyzed By CAD. The pattern is symmetrical. No suspicious groups of microcalcifications, spiculated or lobular masses, architectural distortion or other secondary signs of malignancy are mammographically apparent. Overall Assessment: Benign, BI-RAD 2 Management: Screening Mammogram of both breasts in 1 year. A negative mammogram report should not preclude additional follow up of suspicious palpable abnormalities. Patient should continue monthly self breast exam. A clinical breast exam by your physician is recommended on an annual basis and results should be correlated with mammographic findings. Note on Debbie scores and lifetime risk: 1. A Debbie score greater than 3% is considered moderate risk. If this is the case, consider specialist referral to assess eligibility for a risk reducing agent. 2. If overall lifetime risk for the development of breast cancer is 20% or higher, the patient may qualify for future screening with alternating mammogram and breast MRI. [facility], , 04/15/2024 7:04 PM. Electronically signed and approved by: Mau Womack D.O. Radiologis
== END | disposition home or self-care (01) ==
LOC: RADMAMWWP 08:51
PROVIDERS: ATTEND Family Medicine
DX: Z12.31 Encounter for screening mammogram for malignant neoplasm of breast (principal); R92.333 Mammographic heterogeneous density, bilateral breasts
CPT/HCPCS: 77063; 77067